=== PATIENT | female | born 1990 | race Asian ===

== ENCOUNTER → 2020-11-17 11:23 | Outpatient (CLI) | payer OTHER, SELFPAY ==
[2020-11-17 12:17] LABS: Add Manual Diff / Slide Review NO; Basophils Absolute Auto 100 /uL (0-100); Basophils Percent Auto 1.1 % (0-2); Eosinophils Absolute Auto 300 /uL (0-450); Eosinophils Percent Auto 4.5 % (2-4); Hemoglobin 14.2 g/dL (12.0-16.0); Lymphocytes Absolute Auto 2400 /uL (1100-4500); Lymphocytes Percent Auto 34.8 % (25-40); Mean Corpuscular HGB Conc 33.8 % (30-36); Mean Corpuscular Hemoglobin 27.5 PG (26-34); Mean Corpuscular Volume 81.3 fL (80-100); Monocytes Absolute Auto 400 /uL (0-900); Monocytes Percent Auto 5.8 % (3-14); Neutrophils Absolute Auto 3800 /uL (1500-7000); Neutrophils Percent Auto 53.8 % (50-75); Platelet Count 301 X10^3/uL (150-400); Red Blood Cell Count 5.17 X10^6/uL (4.0-5.2); Red Cell Distribution Width 12.6 % (11.6-14.8)
[2020-11-17 13:15] LABS: Alanine Aminotransferase 13 IU/L (<35); Albumin 4.7 g/dL (3.5-5.0); Albumin Globulin Ratio 1.4 (1.0-2.8); Alkaline Phosphatase 86 U/L (38-126); Aspartate Aminotransferase 21 IU/L (14-36); BUN Creatinine Ratio 27.1 (6-22); Bilirubin Total 0.3 mg/dL (0.2-1.3); Blood Urea Nitrogen 13 mg/dL (7-17); Calcium 9.2 mg/dL (8.4-10.2); Carbon Dioxide 25 mmol/L (22-32); Chloride 104 mmol/L (98-107); Cholesterol 224 mg/dL (140-199); Estimated Glomerular Filt Rate > 60.0 mL/min (>60); Globulin 3.4 g/dL (1.7-4.1); Glucose 107 mg/dL (70-100); HDL Cholesterol 49 mg/dL (40-60); HEMOLYSIS < 15 (0-50); LDL Cholesterol Calculated 147 mg/dL (<100); Potassium 3.4 mmol/L (3.4-5.1); Sodium 137 mmol/L (137-145); Total Protein 8.1 g/dL (6.3-8.2); Triglycerides 139 mg/dL (35-150)
== END ==
PROVIDERS: PCP Registered Nurse; Referring Provider Registered Nurse; Visit Provider Registered Nurse
DX: Z00.00 Encounter for general adult medical examination without abnormal findings (principal); N83.209 Unspecified ovarian cyst, unspecified side; N92.6 Irregular menstruation, unspecified; I10 Essential (primary) hypertension
CPT/HCPCS: 36415; 80053; 80061; 85025

== ENCOUNTER → 2021-06-12 14:48 | Outpatient (CLI) | payer OTHER, SELFPAY ==
[2021-06-12 15:28] LABS: COVID19 -Nasal RAPID Negative (Negative)
== END ==
PROVIDERS: PCP Registered Nurse; Visit Provider Nurse Practitioner Family
DX: R05 Cough (principal)
CPT/HCPCS: 87635

== ENCOUNTER → 2021-10-26 15:15 | Outpatient (CLI) | payer OTHER, SELFPAY ==
--- NOTE | 2021-10-26 15:16 | DI.US.S_ITS ---
ULTRASOUND OF LEFT BREAST: 10/26/2021 CLINICAL: Palpable left breast lump x 1 mo. No prior exams were available for comparison. Color flow ultrasound of the left breast was performed. Mckenna scale images of the real-time examination were reviewed. There is a new 1.9 cm x 1.3 cm x 1.5 cm irregular fibroadenoma with a microlobulated margin in the left breast at 12 o'clock posterior depth 5 cm from the nipple. IMPRESSION: SUSPICIOUS OF MALIGNANCY The new 1.9 cm x 1.3 cm x 1.5 cm irregular fibroadenoma in the left breast is at a low suspicion for malignancy. An ultrasound guided biopsy is recommended. These findings and recommendation were discussed with the patient by Dr. Christian. This exam was interpreted at Station ID: [id number]. Electronically Signed By: Devin Quesada acr/:10/26/2021 15:39:35 letter sent: Biopsy Required Ultrasound BI-RADS: 4a Low suspicion for malignancy
== END ==
PROVIDERS: PCP Registered Nurse; Referring Provider Registered Nurse; Visit Provider Registered Nurse
DX: D24.2 Benign neoplasm of left breast (principal); N64.4 Mastodynia
CPT/HCPCS: 76642

== ENCOUNTER → 2021-11-12 07:36 | Outpatient (CLI) | payer OTHER, SELFPAY ==
--- NOTE | 2021-11-12 | PATH_ITS ---
[facility] Accession Number: [id number] No. of containers..01 Tissue . 01 Material submitted: . breast - LEFT BREAST MASS 12:00 5CMFN . 02 Diagnosis: Left Breast Mass, 12 o'clock, 5 cm from Nipple, Needle Core Biopsy: Benign fibroadipose tissue. Please see comment. No definite breast parenchyma identified. MRV 11/14/2021 1019 Local . 02 Comment: The histologic findings could be consistent with an intraparenchymal lipoma, in the appropriate clinical and imaging setting. Please correlate these findings with imaging studies. No definite breast parenchyma identified. No fibroadenomatous features identified. . 02 Electronically signed: . Susana Rg MD, Pathologist NPI- [id number] . 01 Gross description: . Received in one formalin-filled container, labeled with the patient's name and designated left breast mass 12 o'clock 5 cm FN, are multiple yellow-guan, cylindrical-shaped portions of tissue which range in size from 0.2 x 0.1 x 0.1 cm to 0.7 x 0.1 x 0.1 cm. All fragments are totally submitted in one cassette. Possible collection date and time per requisition: 11/12/2021 at 9:01. Total fixation time: Approximately 18 hours. ([id number]) /FRR 11/13/20212 Local . 02 Pathologist provided ICD-10: N63.20 . 02 CPT . 895484 Specimen Comment: A courtesy copy of this report has been sent to [facility] Pathology Performed at: 01 [facility] [address] [place] [address] [address], [place], [place] [id number] MD Miguel Baca MD Phone: [phone] Performed at: 02 [facility] [address] [place] [id number] MD Cherelle Herrera MD Phone: [phone]
--- NOTE | 2021-11-12 07:53 | DI.US.S_ITS ---
Patient Name: SOURAV COPE date: 1990 Sex: F Attending Physician: Scarlet Handley Indications: Date: 11/12/2021 09:06 At the request of: JAVIER HADLEY Procedure: US breast ndl core biopsy LT ULTRASOUND GUIDED BIOPSY LEFT BREAST WITH MARKING DEVICE INSERTED: 11/12/2021 CLINICAL: Left breast mass. PATIENT CONSENT: Risks (minor bleeding, infection, vasovagal reaction and repeat procedure), benefits and alternatives were explained to the patient and written informed consent was obtained. Correlation is made to exam dated: 10/26/2021 [facility]. An ultrasound guided biopsy using real-time ultrasound was performed for the 5 cm circumscribed mass located in the left breast at 12 o'clock anterior depth. The skin was prepped in the usual manner. A skin will was made in the breast. The abnormality was approached from the lateral aspect. A biopsy needle was placed adjacent to the abnormality under ultrasound guidance. Once the needle was documented to be in the correct location, a specimen was obtained using a NimiaNO biopsy device. A titanium clip was inserted into the biopsy cavity. The specimen was sent to the laboratory for pathological analysis. IMPRESSION: ULTRASOUND GUIDED BIOPSY BENIGN Ultrasound guided biopsy of the 5 cm mass in the left breast at 12 o'clock anterior depth was performed with pathology indicating benign adipose tissue. Pathology results are discordant with imaging findings. Re-biopsy is recommended. This exam was interpreted at Station ID: [id number]. Dr Mendoza Mclean M.D.
== END ==
PROVIDERS: PCP Registered Nurse; Referring Provider Registered Nurse; Visit Provider Registered Nurse
DX: N63.25 Unspecified lump in the left breast, overlapping quadrants (principal)
CPT/HCPCS: 19083

== ENCOUNTER → 2021-12-27 08:57 | Outpatient (CLI) | payer OTHER, SELFPAY ==
--- NOTE | 2021-12-27 | DI.MG.S_ITS ---
UNILATERAL LEFT DIGITAL DIAGNOSTIC MAMMOGRAM 3D/2D POST-EXCISIONAL BIOPSY: 12/27/2021 CLINICAL: Post clip. Mammo baseline. Comparison is made to exams dated: 11/12/2021 ultrasound biopsy and 10/26/[address] [facility]. The tissue of left breast is extremely dense, which lowers the sensitivity of mammography. There is a marker clip in the appropriate position in the left breast at 12 o'clock anterior depth. This marker clip placement is at the biopsy site. IMPRESSION: POST PROCEDURE MAMMOGRAM FOR MARKER PLACEMENT There was a successful marker clip placement in the left breast anterior depth. This exam was interpreted at Station ID: [id number]. NOTE: For mammograms, a report in lay terms will be sent to the patient. Approximately 15% of breast malignancies will not be visualized mammographically. In the management of a palpable breast mass, a negative mammogram must not discourage biopsy of a clinically suspicious lesion. Electronically Signed By: Kimberly flores/penroger:12/27/2021 10:13:02 ACR BI-RADS Category Post-procedure mammogram for marker placement
--- NOTE | 2021-12-27 | PATH_ITS ---
[facility] Accession Number: [id number] No. of containers..01 Tissue . 01 Material submitted: . breast - LEFT BREAST MASS 12:00 . 02 Diagnosis: Left Breast Mass at 12 o'clock, Needle Core Biopsy: Fibroepithelial lesion, consistent with myxoid fibroadenoma. Negative for epithelial atypia or malignancy. MRV 12/31/2021 1137 Local . 02 Comment: As part of routine quality manager, this case was also reviewed by Dr. Colvin, who agrees with the interpretation. . 02 Electronically signed: . Susana Rg MD, Pathologist NPI- [id number] . 01 Gross description: . Received in one part. . Received in formalin, labeled Lela Monet per container and designated left breast mass 12 o'clock per requisition, are four 0.2 cm in diameter elongated portions of guan, rubbery, fibrofatty tissue ranging in length from 1.0 cm to 2.1 cm, and a 2.0 x 0.5 x 0.2 cm aggregate of friable debris. The cores are entirely submitted in cassette A1 and the debris is entirely submitted in cassette A2. (WENDY:[id number]) /FLORENTIN 12/29/2021 1647 Local . 02 Microscopic: . An immunohistochemistry study is performed to evaluate the cells of interest. The control stains show appropriate reactivity. . RESULTS: P63: Positive around cells of interest. Myosin: Positive around cells of interest. . The presence of p63 and smooth muscle myosin around the cells of interest mitigates against the presence of invasive tumor at these foci. . * This test was developed and its performance characteristics determined by [employer]. It has not been cleared or approved by the U.S. Food and Drug Administration. The FDA has determined that such clearance or approval is not necessary. This test is used for clinical purposes. It should not be regarded as investigational or for research . 02 Pathologist provided ICD-10: D24.2 . 02 CPT . 847432, D12987, O68679 Specimen Comment: A courtesy copy of this report has been sent to [facility] Pathology Performed at: 01 [facility] [address] [facility], [place], [place] [id number] MD Miguel Baca MD Phone: [phone] Performed at: 02 [facility] [address] [place], [place] [id number] MD Cherelle Herrera MD Phone: [phone]
--- NOTE | 2021-12-27 | DI.US.S_ITS ---
ULTRASOUND GUIDED BIOPSY LEFT BREAST USING VACUUM DEVICE WITH MARKING DEVICE INSERTED AND POST DIGITAL MAMMOGRAPHIC IMAGIN12/27/2021 CLINICAL: Left breast mass. Repeat biopsy. PATIENT CONSENT: Risks (minor bleeding, infection, vasovagal reaction and repeat procedure), benefits and alternatives were explained to the patient and written informed consent was obtained. Correlation is made to exams dated: 12/27/2021 mammogram, 11/12/2021 ultrasound biopsy, and 10/26/2021 [facility]. An ultrasound guided biopsy using real-time ultrasound was performed for the irregular shaped mass located in the left breast at 11 o'clock anterior depth. The skin was prepped in the usual manner. Local anesthetic was administered to the access site. A skin will was made in the breast. The abnormality was approached from the lateral aspect. A 13 gauge biopsy needle was placed adjacent to the abnormality under ultrasound guidance. Once the needle was documented to be in the correct location, four specimens were obtained using the Mammotome biopsy system. A Celero biopsy clip was inserted into the biopsy cavity. A skin closure strip was applied to the access site. Post procedure digital mammographic imaging demonstrates the location device at the targeted area. The specimens were sent to the laboratory for pathological analysis. IMPRESSION: ULTRASOUND GUIDED BIOPSY BENIGN Ultrasound guided biopsy of the mass in the left breast at 11 o'clock anterior depth was successful. Pathology indicates benign fibroadenoma (FA). Pathology results are concordant with imaging findings. Recommend annual mammography beginning at age 40. This exam was interpreted at Station ID: [id number]. Kimberly Quesada [facility],acr/:01/02/2022 09:32:44
== END ==
PROVIDERS: PCP Registered Nurse; Referring Provider Registered Nurse; Visit Provider Registered Nurse
DX: D24.2 Benign neoplasm of left breast (principal)
CPT/HCPCS: 19083; 77065

== ENCOUNTER → 2022-06-28 11:06 | Outpatient (CLI) | payer OTHER, SELFPAY ==
[2022-06-28 11:45] LABS: Hematocrit 42.1 % (36-46); Hemoglobin 14.1 g/dL (12.0-16.0); Mean Corpuscular HGB Conc 33.5 % (30-36); Mean Corpuscular Hemoglobin 27.3 PG (26-34); Mean Corpuscular Volume 81.5 fL (80-100); Platelet Count 355 X10^3/uL (150-400); Red Blood Cell Count 5.16 X10^6/uL (4.0-5.2); Red Cell Distribution Width 12.6 % (11.6-14.8); White Blood Cell Count 6.1 X10^3/uL (4.5-11.0)
[2022-06-28 12:08] LABS: Creatinine Urine Random 92.6 mg/dL
[2022-06-28 12:09] LABS: Alanine Aminotransferase 15 IU/L (<35); Albumin 4.7 g/dL (3.5-5.0); Albumin Globulin Ratio 1.4 (1.0-2.8); Alkaline Phosphatase 81 U/L (38-126); Aspartate Aminotransferase 22 IU/L (14-36); BUN Creatinine Ratio 16.4 (6-22); Bilirubin Total 0.4 mg/dL (0.2-1.3); Blood Urea Nitrogen 10 mg/dL (7-17); Calcium 9.2 mg/dL (8.4-10.2); Carbon Dioxide 28 mmol/L (22-32); Chloride 102 mmol/L (98-107); Cholesterol 189 mg/dL (140-199); Estimated Glomerular Filt Rate > 60 mL/min (>60); Globulin 3.3 g/dL (1.7-4.1); Glucose 93 mg/dL (70-100); HDL Cholesterol 37 mg/dL (40-60); HEMOLYSIS < 15 (0-50); LDL Cholesterol Calculated 132 mg/dL (<100); Potassium 4.4 mmol/L (3.4-5.1); Sodium 140 mmol/L (137-145); Triglycerides 99 mg/dL (35-150)
[2022-06-28 12:10] LABS: Microalbumi Creatinin Ratio Ur 38.8 ug/mg CR (<30); Microalbumin Urine Random 3.6 mg/dL (0-1.6)
[2022-06-28 12:39] LABS: TSH w/ Reflex to FT4 1.03 uIU/mL (0.47-4.68)
== END ==
PROVIDERS: Family Medicine; PCP Registered Nurse Diabetes Educator; Referring Provider Registered Nurse Diabetes Educator; Visit Provider Registered Nurse Diabetes Educator
DX: I10 Essential (primary) hypertension (principal); E78.5 Hyperlipidemia, unspecified; R00.2 Palpitations; R73.01 Impaired fasting glucose
CPT/HCPCS: 36415; 80053; 80061; 82043; 82570; 83036; 84443; 85027

== ENCOUNTER 2022-07-18 10:32 | Emergency (ER) | payer OTHER, SELFPAY ==
[2022-07-18 10:38] VITALS: BP 184/116; PULSE 75; RESP 15; TEMP 35.8; O2SAT 100; BMI 29.2
--- NOTE | 2022-07-18 10:43 | DI.RAD.S_ITS ---
PROCEDURE: XR CHEST 1V INDICATIONS: chest pain TECHNIQUE: One view of the chest was acquired. COMPARISON: None. FINDINGS: Surgical changes and devices: Left breast clips. Lungs and pleura: Lungs are clear. No pleural effusions or pneumothorax. Mediastinum: Mediastinal contours appear normal. Heart size is normal. Bones and chest wall: No suspicious bony lesions. Overlying soft tissues appear unremarkable. IMPRESSION: No acute cardiopulmonary abnormality. Dictated by: Giuseppe Eduardo M.D. on 07/18/2022 at 11:27 Approved by: Giuseppe Eduardo M.D. on 07/18/2022 at 11:28
[2022-07-18 11:16] LABS: Add Manual Diff / Slide Review NO; Basophils Absolute Auto 100 /uL (0-100); Basophils Percent Auto 1.1 % (0-2); Eosinophils Absolute Auto 300 /uL (0-450); Eosinophils Percent Auto 3.6 % (2-4); Hematocrit 41.7 % (36-46); Hemoglobin 13.7 g/dL (12.0-16.0); Lymphocytes Absolute Auto 2400 /uL (1100-4500); Lymphocytes Percent Auto 29.3 % (25-40); Mean Corpuscular HGB Conc 32.9 % (30-36); Mean Corpuscular Hemoglobin 27.2 PG (26-34); Mean Corpuscular Volume 82.8 fL (80-100); Monocytes Absolute Auto 600 /uL (0-900); Monocytes Percent Auto 7.3 % (3-14); Neutrophils Absolute Auto 4900 /uL (1500-7000); Neutrophils Percent Auto 58.7 % (50-75); Platelet Count 323 X10^3/uL (150-400); Red Blood Cell Count 5.04 X10^6/uL (4.0-5.2); White Blood Cell Count 8.3 X10^3/uL (4.5-11.0)
[2022-07-18 11:22] LABS: Prothrombin Time 11.3 SECONDS (10.1-12.7)
[2022-07-18 11:24] LABS: PTT Partial Thromboplastin Tim 32 SECONDS (26-36)
[2022-07-18 11:28] LABS: Alanine Aminotransferase 14 IU/L (<35); Albumin 4.7 g/dL (3.5-5.0); Albumin Globulin Ratio 1.4 (1.0-2.8); Alkaline Phosphatase 89 U/L (38-126); Aspartate Aminotransferase 18 IU/L (14-36); BUN Creatinine Ratio 24.5 (6-22); Bilirubin Total 0.6 mg/dL (0.2-1.3); Blood Urea Nitrogen 13 mg/dL (7-17); Carbon Dioxide 23 mmol/L (22-32); Chloride 104 mmol/L (98-107); Creatine Kinase 49 U/L (30-135); Estimated Glomerular Filt Rate > 60 mL/min (>60); Globulin 3.4 g/dL (1.7-4.1); Glucose 105 mg/dL (70-100); HEMOLYSIS < 15 (0-50); Lipase 90 U/L (23-300); Potassium 3.9 mmol/L (3.4-5.1); Sodium 139 mmol/L (137-145); Total Protein 8.1 g/dL (6.3-8.2)
[2022-07-18 11:39] LABS: Troponin I < 0.012 ng/mL (0.01-0.034)
[2022-07-18 15:33] VITALS: PULSE 84; RESP 20; O2SAT 100
[2022-07-18 15:35] VITALS: BP 156/95; PULSE 80; RESP 18; O2SAT 99
--- NOTE | 2022-07-18 15:42 | ED_ITS ---
HPI - Chest Pain <Wolfgang Goldstein PA-C - Last Filed: 07/18/22 16:13> General Chief Complaint: Chest Pain Stated Complaint: chest pressure, headace yesterday Time Seen by Provider: 07/18/22 15:25 Source: patient Mode of arrival: Ambulatory Limitations: no limitations History of Present Illness HPI narrative: This is a 31-year-old female presents 3 department due to a week of chest pressure and ?tightness?. Denies any significant shortness of breath or sharp chest pain. Patient denies any fevers, nausea, vomiting, your eye symptoms, or any other concerning signs or symptoms. Patient states that the pain is constant and does not worsen with activity or changes in position. Patient states that she is been seen by her primary care provider for this without any official diagnosis. Last took her control pill a month ago. Related Data Previous Rx's Medication Instructions Recorded norethindrone acetate 1 mg-ethinyl See Rx Instructions .Route 03/01/22 estradiol 20 mcg tablet .COMPLEX #63 tabs metoprolol succinate 100 mg 100 mg PO DAILY #90 tabs 07/17/22 tablet,extended release 24 hr albuterol sulfate 90 mcg/actuation 1 inh inhalation Q4-6H PRN 07/18/22 breath activated powder inhaler shortness of breath #1 ea Allergies Allergy/AdvReac Type Severity Reaction Status Date / Time No Known Drug Allergies Allergy Unverified 07/18/22 10:45 Review of Systems <Wolfgang Goldstein PA-C - Last Filed: 07/18/22 16:13> Review of Systems Narrative: GENERAL: Denies chills, fatigue, malaise, fever, sweats. HEENT: Denies sinus pain, ear pain, sore throat, difficulty swallowing, dizziness. RESPIRATORY: Denies dyspnea, cough, wheezing, hemoptysis, sputum. CARDIOVASCULAR: Reports chest tightness as well as chest pressure, denies, palpitations, orthopnea, edema, GASTROINTESTINAL: Denies nausea, vomiting, abdominal pain, diarrhea, constipation, melena. : Denies dysuria, frequency, incontinence, hematuria, urinary retention. MUSCULOSKELETAL: denies weakness, joint pain, or bony pain SKIN: Denies rash, skin lesions, or other NEUROLOGIC: Denies weakness, headache, numbness, change in speech, confusion, seizures, incoordination. PSYCHIATRIC: No concerning psychosocial issues. 12 point review of systems is negative except for those stated above Patient History <Wolfgang Goldstein PA-C - Last Filed: 07/18/22 16:13> Medical History Anxiety Chicken pox (~1995) Dyslipidemia Essential hypertension (~2018) Immunization due Impaired fasting blood sugar Mass of breast, left Painful lumpy left breast Surgical History History of section (~07/02/19) [place] teeth removed (~2013) Social History (System 07/18/22 @ 10:45 by Deyanira Venegas) Smoking Status: Unknown if ever smoked Smoking Status: Unknown if ever smoked alcohol intake frequency: holidays/special occasions only Substance Use Type: does not use Exam <Wolfgang Goldstein PA-C - Last Filed: 07/18/22 16:13> Narrative Exam Narrative: GENERAL: Well-developed patient, in mild distress. HEAD: Atraumatic. Normocephalic. EYES: Pupils equal round and reactive. Extraocular motions intact. No scleral icterus. No injection or drainage. ENT: Nose without bleeding, purulent drainage. Throat without erythema, tonsillar hypertrophy or exudate. Airway patent. NECK: Trachea midline. Non tender CARDIOVASCULAR: Regular rate and rhythm without murmurs, gallops, or rubs. RESPIRATORY: Clear to auscultation. Breath sounds equal bilaterally. No wheezes, rales, or rhonchi. GASTROINTESTINAL: Abdomen soft, non-tender, nondistended. EXTREMITIES: No edema or joint tenderness. BACK: Nontender without deformity or crepitance. No flank tenderness. NEURO: AOx3. SKIN: No rash or erythema of visible areas Initial Vital Signs Initial Vital Signs: Vital Signs Temperature 96.4 F L 07/18/22 10:38 Pulse Rate 75 07/18/22 10:38 Respiratory Rate 15 07/18/22 10:38 Blood Pressure 184/116 H 07/18/22 10:38 Pulse Oximetry 100 07/18/22 10:38 Oxygen Delivery Method 07/18/22 10:38 <Payton Sales DO - Last Filed: 07/19/22 09:26> Initial Vital Signs Initial Vital Signs: Vital Signs Temperature 96.4 F L 07/18/22 10:38 Pulse Rate 75 07/18/22 10:38 Respiratory Rate 15 07/18/22 10:38 Blood Pressure 184/116 H 07/18/22 10:38 Pulse Oximetry 100 07/18/22 10:38 Oxygen Delivery Method 07/18/22 10:38 Course <Wolfgang Goldstein PA-C - Last Filed: 07/18/22 16:13> Orders Ordered: ED Orders 07/18/22 10:30 Comprehensive Metabolic Panel Stat Lipase Stat Magnesium Stat Partial Thromboplastin Time Stat Prothrombin Time INR Stat Troponin & CK Cardiac Panel Stat 07/18/22 10:43 XR chest 1V Stat EKG-12 Lead Stat 07/18/22 10:50 Complete Blood Count AUTO DIFF Stat 07/18/22 15:50 D Dimer Stat Vital Signs Vital signs: Vital Signs - 8 hr 07/18/22 10:38 Temperature 96.4 F L Pulse Rate 75 Respiratory Rate 15 Blood Pressure 184/116 H Pulse Oximetry 100 Oxygen Delivery Method Room Air <Payton Sales DO - Last Filed: 07/19/22 09:26> Orders Ordered: ED Orders 07/18/22 10:30 Comprehensive Metabolic Panel Stat Lipase Stat Magnesium Stat Partial Thromboplastin Time Stat Prothrombin Time INR Stat Troponin & CK Cardiac Panel Stat 07/18/22 10:43 XR chest 1V Stat EKG-12 Lead Stat 07/18/22 10:50 Complete Blood Count AUTO DIFF Stat 07/18/22 15:50 D Dimer Stat Vital Signs Vital signs: Vital Signs - 8 hr 07/18/22 10:38 Temperature 96.4 F L Pulse Rate 75 Respiratory Rate 15 Blood Pressure 184/116 H Pulse Oximetry 100 Oxygen Delivery Method Room Air MDM - Chest Pain <Wolfgang Goldstein PA-C - Last Filed: 07/18/22 16:13> Lab Data Result diagrams: 07/18/22 10:50 07/18/22 10:30 Labs: Lab Results 07/18/22 07/18/22 07/18/22 Range/Units 10:30 10:30 10:50 WBC 8.3 (4.5-11.0) X10^3/uL RBC 5.04 (4.0-5.2) X10^6/uL Hgb 13.7 (12.0-16.0) g/dL Hct 41.7 (36-46) % MCV 82.8 (80-100) fL MCH 27.2 (26-34) PG MCHC 32.9 (30-36) % RDW 13.0 (11.6-14.8) % Plt Count 323 (150-400) X10^3/uL Neut % (Auto) 58.7 (50-75) % Lymph % (Auto) 29.3 (25-40) % [place] % (Auto) 7.3 (3-14) % Eos % (Auto) 3.6 (2-4) % Baso % (Auto) 1.1 (0-2) % Neut # (Auto) 4900 (0934-4990) /uL Lymph # (Auto) 2400 (6672-5499) /uL [place] # (Auto) 600 (0-900) /uL Eos # (Auto) 300 (0-450) /uL Baso # (Auto) 100 (0-100) /uL PT 11.3 (10.1-12.7) SECONDS INR 1.0 (0.9-1.3) APTT 32 (26-36) SECONDS D-Dimer (<500) ng/ml Sodium 139 (137-145) mmol/L Potassium 3.9 (3.4-5.1) mmol/L Chloride 104 (98-107) mmol/L Carbon Dioxide 23 (22-32) mmol/L BUN 13 (7-17) mg/dL Creatinine 0.53 (0.52-1.04) mg/dL Estimated GFR > 60 (>60) mL/min BUN/Creatinine Ratio 24.5 H (6-22) Glucose 105 H (70-100) mg/dL Calcium 9.0 (8.4-10.2) mg/dL Magnesium 2.0 (1.6-2.3) mg/dL Total Bilirubin 0.6 (0.2-1.3) mg/dL AST 18 (14-36) IU/L ALT 14 (<35) IU/L Alkaline Phosphatase 89 (38-126) U/L Total Creatine Kinase 49 (30-135) U/L CK-MB (CK-2) TNP CK-MB (CK-2) Rel Index TNP Troponin I < 0.012 (0.01-0.034) ng/mL Total Protein 8.1 (6.3-8.2) g/dL Albumin 4.7 (3.5-5.0) g/dL Globulin 3.4 (1.7-4.1) g/dL Albumin/Globulin Ratio 1.4 (1.0-2.8) Lipase 90 (23-300) U/L 07/18/22 Range/Units 15:50 WBC (4.5-11.0) X10^3/uL RBC (4.0-5.2) X10^6/uL Hgb (12.0-16.0) g/dL Hct (36-46) % MCV (80-100) fL MCH (26-34) PG MCHC (30-36) % RDW (11.6-14.8) % Plt Count (150-400) X10^3/uL Neut % (Auto) (50-75) % Lymph % (Auto) (25-40) % [place] % (Auto) (3-14) % Eos % (Auto) (2-4) % Baso % (Auto) (0-2) % Neut # (Auto) (3957-8896) /uL Lymph # (Auto) (8295-3691) /uL [place] # (Auto) (0-900) /uL Eos # (Auto) (0-450) /uL Baso # (Auto) (0-100) /uL PT (10.1-12.7) SECONDS INR (0.9-1.3) APTT (26-36) SECONDS D-Dimer 305 (<500) ng/ml Sodium (137-145) mmol/L Potassium (3.4-5.1) mmol/L Chloride (98-107) mmol/L Carbon Dioxide (22-32) mmol/L BUN (7-17) mg/dL Creatinine (0.52-1.04) mg/dL Estimated GFR (>60) mL/min BUN/Creatinine Ratio (6-22) Glucose (70-100) mg/dL Calcium (8.4-10.2) mg/dL Magnesium (1.6-2.3) mg/dL Total Bilirubin (0.2-1.3) mg/dL AST (14-36) IU/L ALT (<35) IU/L Alkaline Phosphatase (38-126) U/L Total Creatine Kinase (30-135) U/L CK-MB (CK-2) CK-MB (CK-2) Rel Index Troponin I (0.01-0.034) ng/mL Total Protein (6.3-8.2) g/dL Albumin (3.5-5.0) g/dL Globulin (1.7-4.1) g/dL Albumin/Globulin Ratio (1.0-2.8) Lipase (23-300) U/L Imaging Data Chest x-ray: Radiologist's Impression: [address] [address] XRay Report Signed Patient: Lela Monet MR#: [id number] : 1990 Acct:[id number] Age/Sex: 31 / F Date of Service: 07/18/22 Loc: ED Accession Number: [id number] ?? Procedure: XR chest 1V Ordering Provider: Payton Sales D.O. PROCEDURE:? XR CHEST 1V ? INDICATIONS:? chest pain ? TECHNIQUE:? One view of the chest was acquired.? ? COMPARISON:? None. ? FINDINGS:? ? Surgical changes and devices:? Left breast clips. ? Lungs and pleura:? Lungs are clear.? No pleural effusions or pneumothorax.? ? Mediastinum:? Mediastinal contours appear normal.? Heart size is normal.? ? Bones and chest wall:? No suspicious bony lesions.? Overlying soft tissues appear unremarkable.? ? IMPRESSION:? No acute cardiopulmonary abnormality. ? ? ? Dictated by: Giuseppe Eduardo M.D. on 07/18/2022 at 11:27 ? ? Approved by: Giuseppe Eduardo M.D. on 07/18/2022 at 11:28 ? ECG Data Interpretation: EKG is normal sinus rhythm rate 89 and free of any signs of ischemia or ectopy. No ST segmental elevation or depression. No T wave inversions MDM Narrative Medical decision making narrative: Is an otherwise healthy 31-year-old female presents to the emergency department due to a week of chest pressure mild chest ?tightness?. All cardiac workup negative. Troponin within normal limits, EKG reassuring, chest x-ray showed no abnormalities, all other lab work negative as well. Background patient follow- up with her primary care provider for continued workup with possible Cardiology referral. Albuterol inhaler also prescribed in the event that this is some kind of mild reaction to the increased smoke in the area. D-dimer also negative to rule out PE. <Payton Sales, - Last Filed: 07/19/22 09:26> Lab Data Labs: Lab Results 07/18/22 07/18/22 07/18/22 Range/Units 10:30 10:30 10:50 WBC 8.3 (4.5-11.0) X10^3/uL RBC 5.04 (4.0-5.2) X10^6/uL Hgb 13.7 (12.0-16.0) g/dL Hct 41.7 (36-46) % MCV 82.8 (80-100) fL MCH 27.2 (26-34) PG MCHC 32.9 (30-36) % RDW 13.0 (11.6-14.8) % Plt Count 323 (150-400) X10^3/uL Neut % (Auto) 58.7 (50-75) % Lymph % (Auto) 29.3 (25-40) % [place] % (Auto) 7.3 (3-14) % Eos % (Auto) 3.6 (2-4) % Baso % (Auto) 1.1 (0-2) % Neut # (Auto) 4900 (7340-6293) /uL Lymph # (Auto) 2400 (1072-7203) /uL [place] # (Auto) 600 (0-900) /uL Eos # (Auto) 300 (0-450) /uL Baso # (Auto) 100 (0-100) /uL PT 11.3 (10.1-12.7) SECONDS INR 1.0 (0.9-1.3) APTT 32 (26-36) SECONDS D-Dimer (<500) ng/ml Sodium 139 (137-145) mmol/L Potassium 3.9 (3.4-5.1) mmol/L Chloride 104 (98-107) mmol/L Carbon Dioxide 23 (22-32) mmol/L BUN 13 (7-17) mg/dL Creatinine 0.53 (0.52-1.04) mg/dL Estimated GFR > 60 (>60) mL/min BUN/Creatinine Ratio 24.5 H (6-22) Glucose 105 H (70-100) mg/dL Calcium 9.0 (8.4-10.2) mg/dL Magnesium 2.0 (1.6-2.3) mg/dL Total Bilirubin 0.6 (0.2-1.3) mg/dL AST 18 (14-36) IU/L ALT 14 (<35) IU/L Alkaline Phosphatase 89 (38-126) U/L Total Creatine Kinase 49 (30-135) U/L CK-MB (CK-2) TNP CK-MB (CK-2) Rel Index TNP Troponin I < 0.012 (0.01-0.034) ng/mL Total Protein 8.1 (6.3-8.2) g/dL Albumin 4.7 (3.5-5.0) g/dL Globulin 3.4 (1.7-4.1) g/dL Albumin/Globulin Ratio 1.4 (1.0-2.8) Lipase 90 (23-300) U/L 10// Range/Units 15:50 WBC (4.5-11.0) X10^3/uL RBC (4.0-5.2) X10^6/uL Hgb (12.0-16.0) g/dL Hct (36-46) % MCV (80-100) fL MCH (26-34) PG MCHC (30-36) % RDW (11.6-14.8) % Plt Count (150-400) X10^3/uL Neut % (Auto) (50-75) % Lymph % (Auto) (25-40) % [place] % (Auto) (3-14) % Eos % (Auto) (2-4) % Baso % (Auto) (0-2) % Neut # (Auto) (1524-1343) /uL Lymph # (Auto) (0507-2262) /uL [place] # (Auto) (0-900) /uL Eos # (Auto) (0-450) /uL Baso # (Auto) (0-100) /uL PT (10.1-12.7) SECONDS INR (0.9-1.3) APTT (26-36) SECONDS D-Dimer 305 (<500) ng/ml Sodium (137-145) mmol/L Potassium (3.4-5.1) mmol/L Chloride (98-107) mmol/L Carbon Dioxide (22-32) mmol/L BUN (7-17) mg/dL Creatinine (0.52-1.04) mg/dL Estimated GFR (>60) mL/min BUN/Creatinine Ratio (6-22) Glucose (70-100) mg/dL Calcium (8.4-10.2) mg/dL Magnesium (1.6-2.3) mg/dL Total Bilirubin (0.2-1.3) mg/dL AST (14-36) IU/L ALT (<35) IU/L Alkaline Phosphatase (38-126) U/L Total Creatine Kinase (30-135) U/L CK-MB (CK-2) CK-MB (CK-2) Rel Index Troponin I (0.01-0.034) ng/mL Total Protein (6.3-8.2) g/dL Albumin (3.5-5.0) g/dL Globulin (1.7-4.1) g/dL Albumin/Globulin Ratio (1.0-2.8) Lipase (23-300) U/L ECG Data Interpretation: EKG is normal sinus rhythm rate 89 and free of any signs of ischemia or ectopy. No ST segmental elevation or depression. No T wave inversions [place]-sinus rhythm rate 81-year-old 1 2 QRS [address] changes no T-wave inversions no priors to compare Discharge Plan Departure Patient Disposition: Home Clinical Impression: Chest pressure Instructions: DI for Atypical Chest Pain Activity Restrictions/Additional Instructions: Thank you for coming to the [facility] Emergency Department today. Your cardiac workup was unremarkable. Chest x-ray showed no evidence of heart or lung abnormalities. The blood test to check for any kind of heart attack was reassuring. EKG showed no evidence of any kind heart abnormality. All your other lab work was unremarkable as well, did not show any signs of infection or electrolyte abnormalities. We also did a test to check for any kind of blood clot in your lungs which was also negative. I recommended follow-up with the primary care provider for possible cardiology referral if symptoms continue. I hope you feel better soon. Prescriptions: New albuterol sulfate 90 mcg/actuation aerosol powdr breath activated 1 inh inhalation Q4-6H PRN (Reason: shortness of breath) Qty: 1 0RF No Action norethindrone ac-eth estradiol 1-20 mg-mcg tablet See Rx Instructions .ROUTE .COMPLEX Qty: 63 1RF Dose Instruction: TAKE 1 TABLET BY MOUTH DAILY Rx Instructions: TAKE 1 TABLET BY MOUTH DAILY metoprolol succinate 100 mg tablet extended release 24 hr 100 mg PO DAILY Qty: 90 0RF Referrals: Greg Sethi ARNP [Primary Care Provider] - Visit Report Forms: Patient Portal/API <Payton Sales DO - Last Filed: 07/19/22 09:26> Cosign ED Attending Antolinature Attestation: I was immediately available in the department for consultation. Documentation has been reviewed. I agree with assessment and plan.
[2022-07-18 16:00] VITALS: BP 149/90; PULSE 80; RESP 18; O2SAT 97
[2022-07-18 16:10] LABS: D Dimer 305 ng/ml (<500)
== END 2022-07-18 16:20 | disposition home or self-care (01) ==
PROVIDERS: Emergency Medicine; Emergency Provider Physician Assistant Medical; PCP Registered Nurse Diabetes Educator
DX: R07.9 Chest pain, unspecified (principal)
CPT/HCPCS: 36415; 71045; 80053; 82550; 83690; 83735; 84484; 85025; 85379; 85610; 85730; 93005; 93010; 99284

== ENCOUNTER 2022-09-08 03:23 | Emergency (ER) | payer OTHER, SELFPAY ==
[2022-09-08] VITALS (7 sets, daily range): BP systolic 135–185; BP diastolic 85–114; PULSE 91–109; RESP 16; TEMP 36.8; O2SAT 99–100; BMI 29.2
--- NOTE | 2022-09-08 03:28 | ED_ITS ---
HPI - Arrhythmia/Palpitations General Chief Complaint: Arrhythmia/Palpitations Stated Complaint: CHEST PALPITATIONS/MEDS. CHANGED Time Seen by Provider: 09/08/22 03:27 History of Present Illness HPI narrative: 31-year-old female nonsmoker with history of hypertension is a that just found out she was a few days ago. She had historically been on lisinopril and metoprolol to control her blood pressure but upon finding out she was she was taken off of these and started on labetalol 100 twice daily. She presents this morning with a chief complaint of palpitations. She states that she might be slightly dizzy but is not lightheaded. She denies headache or blurred vision. She denies chest pain or shortness of breath. She has no nausea, vomiting or diarrhea. She denies dysuria, frequency or urgency. She has no vaginal bleeding, discharge or leakage of fluid. Related Data Previous Rx's Medication Instructions Recorded metoprolol succinate 100 mg 100 mg PO DAILY #90 tabs 07/17/22 tablet,extended release 24 hr albuterol sulfate 90 mcg/actuation 1 inh inhalation Q4-6H PRN 07/18/22 breath activated powder inhaler shortness of breath #1 ea lisinopril 10 1 tab PO DAILY #30 tabs 08/20/22 mg-hydrochlorothiazide 12.5 mg tablet labetalol 100 mg tablet See Rx Instructions .Route 09/05/22 .COMPLEX #180 tabs Allergies Allergy/AdvReac Type Severity Reaction Status Date / Time No Known Drug Allergies Allergy Verified 08/20/22 13:30 Review of Systems Review of Systems Narrative: GENERAL: Denies chills, fatigue, malaise, fever, sweats. HEENT: Denies sinus pain, ear pain, sore throat, difficulty swallowing, dizziness. RESPIRATORY: Denies dyspnea, cough, wheezing, hemoptysis, sputum. CARDIOVASCULAR: See HPI GASTROINTESTINAL: Denies nausea, vomiting, abdominal pain, diarrhea, constipation, melena. : Denies dysuria, frequency, incontinence, hematuria, urinary retention. MUSCULOSKELETAL: denies weakness, joint pain, or bony pain SKIN: Denies rash, skin lesions, or other NEUROLOGIC: Denies weakness, headache, numbness, change in speech, confusion, seizures, incoordination. PSYCHIATRIC: No concerning psychosocial issues. 12 point review of systems is negative except for those stated above Patient History Medical History Anxiety Chicken pox (~1995) Dyslipidemia Essential hypertension (~2018) Immunization due Impaired fasting blood sugar Mass of breast, left Painful lumpy left breast Surgical History History of section (~07/02/19) [place] teeth removed (~2013) Social History Smoking Status: Unknown if ever smoked Smoking Status: Unknown if ever smoked alcohol intake frequency: holidays/special occasions only Substance Use Type: does not use Exam Narrative Exam Narrative: GENERAL: [31] year old patient appears stated age. Well-developed patient, in mild distress. HEAD: Atraumatic. Normocephalic. EYES: Pupils equal round and reactive. Extraocular motions intact. No scleral icterus. No injection or drainage. ENT: Nose without bleeding, purulent drainage. Throat without erythema, tonsillar hypertrophy or exudate. Airway patent. NECK: Trachea midline. Non tender CARDIOVASCULAR: Tachycardic but regular rhythm without murmurs, gallops, or rubs. RESPIRATORY: Clear to auscultation. Breath sounds equal bilaterally. No wheezes, rales, or rhonchi. GASTROINTESTINAL: Abdomen soft, non-tender, nondistended. EXTREMITIES: No edema or joint tenderness. BACK: Nontender without deformity or crepitance. No flank tenderness. NEURO: AOx3. SKIN: No rash or erythema of visible areas Initial Vital Signs Initial Vital Signs: Vital Signs Temperature 98.2 F 09/08/22 03:37 Pulse Rate 109 H 09/08/22 03:37 Respiratory Rate 16 09/08/22 03:37 Blood Pressure 183/114 H 09/08/22 03:37 Pulse Oximetry 99 09/08/22 03:37 Oxygen Delivery Method 09/08/22 03:37 Course Orders Ordered: ED Orders 09/08/22 EKG-12 Lead Routine 09/08/22 03:35 ABO RH Type Stat Complete Blood Count AUTO DIFF Stat Comprehensive Metabolic Panel Stat HCG Quantitative /Beta subunit Stat LDH [Lactate Dehydrogenase] Stat Magnesium Stat NT-proBNP (BNP-Adult 18+) Stat Troponin & CK Cardiac Panel Stat Uric Acid Stat Discontinued Medications Labetalol HCl (Labetalol 20 Mg/4 Ml Syringe) 20 mg IV NOW ONE Stop: 09/08/22 04:08 Last Admin: 09/08/22 04:12 Dose: 20 mg Documented By: LINA Labetalol HCl (Labetalol 100 Mg Tablet) 100 mg PO NOW ONE Stop: 09/08/22 04:49 Last Admin: 09/08/22 04:56 Dose: 100 mg Documented By: LINA Reevaluation(s) Reevaluation #1: Patient given Labetalol 20mg IVP and BP improves to the 140s. HR improved. Time: 04:35 Consultations Consultation #1: Discussed case with on-call OB, Dr. Camarena, we have discussed patient's history and physical, labs and response to therapies. We sure the opinion that most appropriate course is increasing labetalol from 100-200 mg p.o. b.i.d. with close follow-up Vital Signs Vital signs: Vital Signs - 8 hr 09/08/22 03:37 09/08/22 04:26 09/08/22 04:12 Temperature 98.2 F Pulse Rate 109 H 99 H 109 H Respiratory Rate 16 16 Blood Pressure 183/114 H 140/88 185/110 H Pulse Oximetry 99 99 Oxygen Delivery Method Room Air Room Air 09/08/22 04:56 09/08/22 05:23 09/08/22 05:28 Temperature Pulse Rate 101 H 98 H 97 H Respiratory Rate 16 Blood Pressure 145/88 H 135/86 135/85 Pulse Oximetry 100 Oxygen Delivery Method 09/08/22 05:44 Temperature Pulse Rate 91 H Respiratory Rate 16 Blood Pressure 142/85 H Pulse Oximetry 100 Oxygen Delivery Method Room Air MDM - Arrhythmia/Palpitations Lab Data Result diagrams: 09/08/22 03:35 09/08/22 03:35 Labs: Lab Results 09/08/22 09/08/22 09/08/22 Range/Units 03:35 03:35 03:35 WBC 10.1 (4.5-11.0) X10^3/uL RBC 4.67 (4.0-5.2) X10^6/uL Hgb 12.9 (12.0-16.0) g/dL Hct 38.4 (36-46) % MCV 82.3 (80-100) fL MCH 27.5 (26-34) PG MCHC 33.5 (30-36) % RDW 13.4 (11.6-14.8) % Plt Count 312 (150-400) X10^3/uL Neut % (Auto) 57.7 (50-75) % Lymph % (Auto) 29.7 (25-40) % [place] % (Auto) 8.5 (3-14) % Eos % (Auto) 3.3 (2-4) % Baso % (Auto) 0.8 (0-2) % Neut # (Auto) 5800 (2750-7226) /uL Lymph # (Auto) 3000 (0344-1005) /uL [place] # (Auto) 900 (0-900) /uL Eos # (Auto) 300 (0-450) /uL Baso # (Auto) 100 (0-100) /uL Sodium 137 (137-145) mmol/L Potassium 3.8 (3.4-5.1) mmol/L Chloride 107 (98-107) mmol/L Carbon Dioxide 21 L (22-32) mmol/L BUN 11 (7-17) mg/dL Creatinine 0.48 L (0.52-1.04) mg/dL Estimated GFR > 60 (>60) mL/min BUN/Creatinine Ratio 22.9 H (6-22) Glucose 103 H (70-100) mg/dL Uric Acid 6.1 (2.5-6.2) mg/dL Calcium 8.9 (8.4-10.2) mg/dL Magnesium 1.8 (1.6-2.3) mg/dL Total Bilirubin 0.4 (0.2-1.3) mg/dL AST 20 (14-36) IU/L ALT 14 (<35) IU/L Alkaline Phosphatase 77 (38-126) U/L Lactate Dehydrogenase 148 (120-246) U/L Total Creatine Kinase 62 (30-135) U/L CK-MB (CK-2) TNP CK-MB (CK-2) Rel Index TNP Troponin I < 0.012 (0.01-0.034) ng/mL NT-Pro-B Natriuret Pep 42 (<125) pg/mL Total Protein 7.6 (6.3-8.2) g/dL Albumin 4.4 (3.5-5.0) g/dL Globulin 3.2 (1.7-4.1) g/dL Albumin/Globulin Ratio 1.4 (1.0-2.8) HCG, Quant 486.8 mIU/mL Blood Type B Positive ECG Data Interpretation: [0334] EKG is normal sinus rhythm rate [112 ] and free of any signs of ischemia or ectopy. No ST segmental elevation or depression. No T wave inversions MDM Narrative Medical decision making narrative: 31-year-old female nonsmoker with history of asthma and hypertension presents with chief complaint of increased blood pressure and heart rate after switching from metoprolol and lisinopril when she found out she was . Other than palpitations she is asymptomatic and denies headache or blurred vision or chest pain or shortness of breath. Patient responds quite well to labetalol IV and blood pressures improved to the 130s 140s with heart rate dropping to the 80s and 90s. Labs are very reassuring. I have consulted with on-call Ob who recomm ends increasing labetalol to 200 mg p.o. b.i.d.. Extensive return precautions discussed and questions answered to her apparent satisfaction Discharge Plan Departure Patient Disposition: Home Clinical Impression: HTN in , chronic Instructions: High Blood Pressure Activity Restrictions/Additional Instructions: *You have been diagnosed with [high blood pressure early in .] *What to do: *Please increase your Labetalol to 200mg twice daily [ ] New medication prescriptions sent to your pharmacy: [ ] [ ] New medication written as a paper prescription [ ] No new medications given *Please follow up with your primary care provider in 2-3 days, call for an appointment. Let them know you were seen in the Emergency Department and that we ask that you be seen in follow up. We will electronically transmit a record of today's note if your PCP is in our system * as we discussed I have contacted our on-call Customer Project Manager. Please call their office on Friday, let them know you were seen in the emergency department and we would like you seen in follow-up *Return to Emergency Department if you should have any new, worsening or concerning symptoms, such as [fever greater than 101 F, shaking chills, worsening pain, persistent vomiting or other bothersome symptoms] Prescriptions: No Action labetalol 100 mg tablet See Rx Instructions .ROUTE .COMPLEX Qty: 180 0RF Dose Instruction: TAKE 1 TABLET BY MOUTH TWICE DAILY Rx Instructions: TAKE 1 TABLET BY MOUTH TWICE DAILY lisinopril-hydrochlorothiazide 10-12.5 mg tablet 1 tab PO DAILY Qty: 30 1RF metoprolol succinate 100 mg tablet extended release 24 hr 100 mg PO DAILY Qty: 90 0RF albuterol sulfate 90 mcg/actuation aerosol powdr breath activated 1 inh inhalation Q4-6H PRN (Reason: shortness of breath) Qty: 1 0RF Referrals: Yoli Camarena MD [Physician] - Greg Sethi ARNP [Primary Care Provider] - Visit Report Forms: Patient Portal/API
[2022-09-08 03:43] LABS: Add Manual Diff / Slide Review NO; Basophils Absolute Auto 100 /uL (0-100); Basophils Percent Auto 0.8 % (0-2); Eosinophils Absolute Auto 300 /uL (0-450); Eosinophils Percent Auto 3.3 % (2-4); Hematocrit 38.4 % (36-46); Hemoglobin 12.9 g/dL (12.0-16.0); Lymphocytes Absolute Auto 3000 /uL (1100-4500); Lymphocytes Percent Auto 29.7 % (25-40); Mean Corpuscular HGB Conc 33.5 % (30-36); Mean Corpuscular Hemoglobin 27.5 PG (26-34); Mean Corpuscular Volume 82.3 fL (80-100); Monocytes Absolute Auto 900 /uL (0-900); Monocytes Percent Auto 8.5 % (3-14); Neutrophils Absolute Auto 5800 /uL (1500-7000); Neutrophils Percent Auto 57.7 % (50-75); Platelet Count 312 X10^3/uL (150-400); Red Blood Cell Count 4.67 X10^6/uL (4.0-5.2); Red Cell Distribution Width 13.4 % (11.6-14.8); White Blood Cell Count 10.1 X10^3/uL (4.5-11.0)
[2022-09-08 03:52] LABS: Alanine Aminotransferase 14 IU/L (<35); Albumin 4.4 g/dL (3.5-5.0); Albumin Globulin Ratio 1.4 (1.0-2.8); Alkaline Phosphatase 77 U/L (38-126); Aspartate Aminotransferase 20 IU/L (14-36); BUN Creatinine Ratio 22.9 (6-22); Bilirubin Total 0.4 mg/dL (0.2-1.3); Blood Urea Nitrogen 11 mg/dL (7-17); Calcium 8.9 mg/dL (8.4-10.2); Carbon Dioxide 21 mmol/L (22-32); Chloride 107 mmol/L (98-107); Creatine Kinase 62 U/L (30-135); Estimated Glomerular Filt Rate > 60 mL/min (>60); Globulin 3.2 g/dL (1.7-4.1); Glucose 103 mg/dL (70-100); HEMOLYSIS < 15 (0-50); Lactate Dehydrogenase 148 U/L (120-246); Magnesium 1.8 mg/dL (1.6-2.3); Potassium 3.8 mmol/L (3.4-5.1); Sodium 137 mmol/L (137-145); Total Protein 7.6 g/dL (6.3-8.2); Uric Acid 6.1 mg/dL (2.5-6.2)
[2022-09-08 04:04] LABS: NT-proBNP (BNP-Adult 18+) 42 pg/mL (<125); Troponin I < 0.012 ng/mL (0.01-0.034)
[2022-09-08 04:09] LABS: HCG Quantitative /Beta subunit 486.8 mIU/mL
[2022-09-08] MEDS: LABETALOL 20 MG/4 ML SYRINGE IV (04:12)
[2022-09-08] MEDS: LABETALOL 100 MG TABLET PO (04:56)
== END 2022-09-08 05:53 | disposition home or self-care (01) ==
PROVIDERS: Emergency Provider Emergency Medicine; PCP Registered Nurse Diabetes Educator
DX: O10.919 Unspecified pre-existing hypertension complicating pregnancy, unspecified trimester (principal); Z3A.01 Less than 8 weeks gestation of pregnancy
CPT/HCPCS: 36415; 80053; 82550; 83615; 83735; 83880; 84484; 84550; 84702; 85025; 86900; 86901; 93005; 96374; 99284

== ENCOUNTER → 2022-09-27 07:14 | Outpatient (CLI) | payer OTHER, SELFPAY ==
--- NOTE | 2022-09-27 07:15 | DI.US.S_ITS ---
PROCEDURE: US OB <= 14 WEEKS FETUS INDICATIONS: DATES OUTSIDE/PRIOR DATING DATA: Last menstrual period (LMP): September 20, 2022. LMP-based estimated date of delivery (JUSTICE): April 27, 2023. First dating scan (date and location): September 27, 2022. [facility]. Estimated date of delivery (JUSTICE) from first dating scan: May 16, 2023 TECHNIQUE: Real-time scanning was performed of the fetus and maternal pelvic organs, with image documentation. Endovaginal scanning was also performed to better visualize the fetus and maternal ovaries. COMPARISON: None. FINDINGS: Embryo: 0.9 cm crown-rump length. 7 weeks 0 days Heart rate: 150 BPM Maternal organs: The right ovary is not visualized. The left ovary has a normal sonographic appearance. IMPRESSION: 1. Single live intrauterine gestation with a gestational age of 7 weeks, 0 days by crown-rump length. 2. Right ovary not visualized. Left ovary has a normal sonographic appearance. We strive to produce accurate, complete, and clear reports of imaging services. To assist us in improving patient care, this report was composed using standard report templates and voice recognition software. Therefore, it may contain abnormal punctuation, insertions and/or omissions. Occasional wrong-word or sound-alike substitutions may occur. Though we review the report and make efforts to correct it, we do recommend that the report be read carefully in proper context to recognize any text inaccuracies. Dictated by: Carmen Ocampo M.D. on 09/27/2022 at 8:29 Approved by: Carmen Ocampo M.D. on 09/27/2022 at 8:33
== END ==
PROVIDERS: PCP Registered Nurse Diabetes Educator; Referring Provider Obstetrics & Gynecology; Visit Provider Obstetrics & Gynecology
DX: Z34.81 Encounter for supervision of other normal pregnancy, first trimester (principal); Z3A.01 Less than 8 weeks gestation of pregnancy
CPT/HCPCS: 76801; 76817

== ENCOUNTER → 2022-10-08 14:31 | Outpatient (CLI) | payer OTHER, SELFPAY ==
[2022-10-09 01:05] LABS: Urine N gonorrhoeae NOT DETECTED
[2022-10-09 01:15] LABS: Urine Chlamydia NOT DETECTED
== END ==
PROVIDERS: PCP Registered Nurse Diabetes Educator; Visit Provider Obstetrics & Gynecology
DX: Z34.81 Encounter for supervision of other normal pregnancy, first trimester (principal); Z3A.11 11 weeks gestation of pregnancy
CPT/HCPCS: 87491; 87591

== ENCOUNTER → 2022-10-08 15:18 | Outpatient (CLI) | payer OTHER, SELFPAY ==
[2022-10-08 16:48] LABS: Appearance Urine UA CLEAR; Bilirubin Urine UA NEGATIVE (NEGATIVE); Color Urine UA YELLOW; Glucose Urine UA NEGATIVE (Negative); Ketones Urine UA NEGATIVE (NEGATIVE); Leukocyte Esterase Urine UA NEGATIVE (NEGATIVE); Nitrite Urine UA NEGATIVE (Negative); Occult Blood Urine UA NEGATIVE (Negative); Protein Urine UA NEGATIVE (Negative); Urobilinogen Urine UA 0.2 E.U./dL (0.2)
[2022-10-08 16:51] LABS: pH Urine UA 6.5 (4.5-8.0)
[2022-10-08 16:56] LABS: Add Manual Diff / Slide Review NO; Basophils Absolute Auto 100 /uL (0-100); Basophils Percent Auto 0.9 % (0-2); Eosinophils Absolute Auto 200 /uL (0-450); Eosinophils Percent Auto 2.2 % (2-4); Hematocrit 36.7 % (36-46); Hemoglobin 12.3 g/dL (12.0-16.0); Lymphocytes Absolute Auto 2100 /uL (1100-4500); Lymphocytes Percent Auto 18.7 % (25-40); Mean Corpuscular HGB Conc 33.4 % (30-36); Mean Corpuscular Volume 83.7 fL (80-100); Monocytes Absolute Auto 700 /uL (0-900); Neutrophils Absolute Auto 8000 /uL (1500-7000); Neutrophils Percent Auto 72.2 % (50-75); Platelet Count 342 X10^3/uL (150-400); Red Blood Cell Count 4.39 X10^6/uL (4.0-5.2); Red Cell Distribution Width 13.2 % (11.6-14.8); White Blood Cell Count 11.1 X10^3/uL (4.5-11.0)
[2022-10-08 17:01] LABS: Protein (Total) Urine Random 14 mg/dL (0-12)
[2022-10-08 17:02] LABS: Alanine Aminotransferase 12 IU/L (<35); Aspartate Aminotransferase 24 IU/L (14-36); BUN Creatinine Ratio 19.2 (6-22); Blood Urea Nitrogen 10 mg/dL (7-17); Estimated Glomerular Filt Rate > 60 mL/min (>60); Uric Acid 4.8 mg/dL (2.5-6.2)
[2022-10-08 17:37] LABS: Hepatitis B Surface Antigen NEGATIVE s/c (NEGATIVE)
[2022-10-08 17:38] LABS: Rubella Antibody IgG > 350.0 IU/mL (>15)
[2022-10-08 17:54] LABS: HIV 1 & 2 Ab/Ag 4th Gen Combo NEGATIVE (NEGATIVE); Hep C Virus Ab w/Reflex Quant NEGATIVE s/c (NEGATIVE)
[2022-10-08 21:22] LABS: Creatinine Urine Random 29.1 mg/dL
[2022-10-08 21:25] LABS: Microalbumi Creatinin Ratio Ur 34.3 ug/mg CR (<30)
[2022-10-09 08:11] LABS: RPR Screen Non Reactive (Non Reactive); Varicella IgG Antibody 1466 index (Immune >165)
== END ==
PROVIDERS: PCP Registered Nurse Diabetes Educator; Referring Provider Obstetrics & Gynecology; Visit Provider Obstetrics & Gynecology
DX: O16.1 Unspecified maternal hypertension, first trimester (principal); Z20.828 Contact with and (suspected) exposure to other viral communicable diseases; R80.9 Proteinuria, unspecified; Z3A.11 11 weeks gestation of pregnancy
CPT/HCPCS: 36415; 80055; 81003; 82043; 82565; 82570; 84156; 84450; 84460; 84520; 84550; 86644; 86645; 86787; 86803; 86850; 86900; 86901; 87389; 87491; 87591

== ENCOUNTER → 2022-10-30 11:20 | Outpatient (CLI) | payer OTHER, SELFPAY ==
[2022-10-30 11:56] LABS: Specimen Label kit test (natera)
[2022-10-30 13:21] LABS: Alanine Aminotransferase 11 IU/L (<35); Albumin 4.2 g/dL (3.5-5.0); Albumin Globulin Ratio 1.5 (1.0-2.8); Alkaline Phosphatase 51 U/L (38-126); Aspartate Aminotransferase 18 IU/L (14-36); BUN Creatinine Ratio 18.9 (6-22); Bilirubin Total 0.4 mg/dL (0.2-1.3); Blood Urea Nitrogen 7 mg/dL (7-17); Calcium 9.3 mg/dL (8.4-10.2); Carbon Dioxide 25 mmol/L (22-32); Chloride 104 mmol/L (98-107); Estimated Glomerular Filt Rate > 60 mL/min (>60); Globulin 2.8 g/dL (1.7-4.1); Glucose 80 mg/dL (70-100); HEMOLYSIS < 15 (0-50); Potassium 4.1 mmol/L (3.4-5.1); Sodium 134 mmol/L (137-145)
[2022-10-30 13:28] LABS: Creatinine, Serum (CRCL) 0.38 mg/dL (0.52-1.04)
[2022-10-30 15:46] LABS: Creatinine Urine Random 36.7 mg/dL
[2022-11-01 12:55] LABS: Collection Time Urine 24 Hours; Creatinine Clearance Urine 315.2 mL/MIN; Total Volume Urine 4700 mL
== END ==
PROVIDERS: PCP Registered Nurse Diabetes Educator; Referring Provider Obstetrics & Gynecology; Visit Provider Obstetrics & Gynecology
DX: O16.1 Unspecified maternal hypertension, first trimester (principal)
CPT/HCPCS: 36415; 80053; 82575

== ENCOUNTER → 2022-11-01 11:28 | Outpatient (CLI) | payer OTHER, SELFPAY ==
[2022-11-01 12:54] LABS: Collection Time Urine 24 Hours; Total Volume Urine 4700 mL
[2022-11-01 14:24] LABS: Protein (Total) Urine Random 15 mg/dL (0-12); Total Protein 24 Hour Urine 705 mg/day (42-225)
== END ==
PROVIDERS: PCP Registered Nurse Diabetes Educator; Referring Provider Obstetrics & Gynecology; Visit Provider Obstetrics & Gynecology
DX: O16.1 Unspecified maternal hypertension, first trimester (principal)
CPT/HCPCS: 84156

== ENCOUNTER → 2022-11-06 09:48 | Outpatient (CLI) | payer OTHER, SELFPAY | PROVIDERS: PCP Registered Nurse Diabetes Educator; Visit Provider Obstetrics & Gynecology | DX: Z34.81 Encounter for supervision of other normal pregnancy, first trimester (principal) | CPT/HCPCS: 87086 ==

== ENCOUNTER → 2022-12-10 11:30 | Outpatient (CLI) | payer OTHER, SELFPAY ==
[2022-12-12 19:30] LABS: AFP Value 38.4 ng/mL (.); Gest Age on Col Date 17.6 weeks (.); Insulin Dep Diabetes No (.); OSBR Risk 1IN 10000 (.); Results Report (.); Test Results *Screen Negative* (.)
== END ==
PROVIDERS: PCP Registered Nurse Diabetes Educator; Referring Provider Specialist; Visit Provider Specialist
DX: Z34.82 Encounter for supervision of other normal pregnancy, second trimester (principal); Z3A.17 17 weeks gestation of pregnancy
CPT/HCPCS: 36415; 82105

== ENCOUNTER 2023-01-02 02:58 | Observation (INO) | payer OTHER, SELFPAY ==
--- NOTE | 2023-01-02 03:03 | DI.US.S_ITS ---
PROCEDURE: US OB LIMITED INDICATIONS: PTL OUTSIDE/PRIOR DATING DATA: Last menstrual period (LMP): 07/21/2022. LMP-based estimated date of delivery (JUSTICE): 04/27/2023. First dating scan (date and location): 09/27/2022. Estimated date of delivery (JUSTICE) from first dating scan: 05/16/2023. The calculations are made using the working JUSTICE of 05/16/2023. TECHNIQUE: Real-time scanning was performed of the fetus, with image documentation and biometric measurements. Biophysical profile was also obtained. COMPARISON: [facility], , OB >= 14 WEEKS FETUS, 12/10/2022, 11:21. [facility], OB <= 14 WEEKS FETUS, 11/06/2022, 9:53. [facility], OB <= 14 WEEKS FETUS, 10/08/2022, 14:59. [facility], US OB <= 14 WEEKS FETUS, 09/27/2022, 7:20. FINDINGS: General: A single living intrauterine gestation is present. Presentation: Transverse head to the right. Placenta: Placental position is posterior, without previa. Amniotic fluid index: 13.1 cm, normal range is 5-24 cm. Single deepest vertical pocket is 3.8 cm. heart rate: 132 beats per minute. Maternal cervical canal: 5.0 cm long. Normal lower limit is 2.5 cm. biometrics: Not performed. Clinically estimated gestational age: 20 weeks 6 days IMPRESSION: 1. A single living intrauterine gestation redemonstrated. 2. Cervix is closed at 5.0 cm in length. 3. Normal KESHIA. No significant discrepancy with the cylinder checker radiology preliminary report. We strive to produce accurate, complete, and clear reports of imaging services. To assist us in improving patient care, this report was composed using standard report templates and voice recognition software. Therefore, it may contain abnormal punctuation, insertions and/or omissions. Occasional wrong-word or sound-alike substitutions may occur. Though we review the report and make efforts to correct it, we do recommend that the report be read carefully in proper context to recognize any text inaccuracies. Dictated by: Latha Christian M.D. on 01/02/2023 at 8:22 Approved by: Latha Christian M.D. on 01/02/2023 at 8:25
[2023-01-02 03:33] LABS: Appearance Urine UA CLEAR; Bilirubin Urine UA NEGATIVE (NEGATIVE); Color Urine UA YELLOW; Glucose Urine UA NEGATIVE (Negative); Ketones Urine UA NEGATIVE (NEGATIVE); Leukocyte Esterase Urine UA NEGATIVE (NEGATIVE); Nitrite Urine UA NEGATIVE (Negative); Occult Blood Urine UA NEGATIVE (Negative); Protein Urine UA NEGATIVE (Negative); Urobilinogen Urine UA 0.2 E.U./dL (0.2)
[2023-01-02 03:40] LABS: Bacteria Urine Few (2-10); RBC Urine None Seen (0-5/HPF); Squamous Epithelial Cell Urine 1-5 /HPF (0-5/HPF); WBC Urine None Seen (0-5/HPF)
[2023-01-02 03:41] LABS: Culture Indicated Urine Cult Not Indicated
[2023-01-02 04:28] LABS: Fetal Fibronectin Negative
[2023-01-02] MEDS: LACTATED RINGERS 1,000 ML 1000 ML IV (04:45)
--- NOTE | 2023-01-02 04:50 | P.TNLD_ITS ---
Visit Information Visit Information Date of evaluation: 01/02/23 Primary OB Provider: Yoli Camarena On-call OB Provider: Opal Henry Reason for Evaluation: Yes other Comments/Additional reasons for admission: 32YO @ 20wks 5 days here for evaluation of cramping and low back pain. Cramping started yesterday at 5pm and became painful at 10pm. Took Tylenol 975mg with no relief. Feeling FM. No vaginal bleeding or leaking of fluid. complicated by chronic HTN (managed with Labetolol 200mg TID and Nifedipine 30XL/day), possible arachnoid cyst (referred to [facility] 12/17/2022; MR performed 12/31/2022), and low lying/ marginal previa for which she has been on strict pelvic rest. Has been drinking and feels well hydrated. No urinary or vaginal concerns. Vital Signs Vital Signs: Serial BPs: 150/89, 156/87, 135/85, 141/86, 13/85, 134/87 HR 88bpm , T 36.4C temporal PFSH Medical History (Updated 01/02/23 @ 15:20 by Opal Henry CNM) Anxiety Chicken pox (~1995) Contraceptive use Fibroadenoma of left breast Immunization due Irregular menstrual cycle Mass of breast, left Surgical History (Updated 10/08/22 @ 15:37 by Yoli Camarena MD) History of section (~07/02/19) [place] teeth removed (~2013) Family History (Updated 09/18/22 @ 09:19 by Luda Peter RN) Mother Hypertension Hyperlipidemia Father Hypertension Hyperlipidemia Grandmother Hypertension Hyperlipidemia Grandfather Hypertension Hyperlipidemia Family/Other Diabetes mellitus Hypertension Social History marital status: household members: spouse and children lives independently: Yes caregiver/support person: Yes housing: house pets and animals: No education level: college (associate's degree) 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[employer]) current occupational exposures/hazards: Yes (always wears gloves w/ chemicals and hazardous meds, mask @ work) special niall needs: No travel history: over 6 months ago seatbelt use: always water heater temp set < 120 deg: Yes working smoke detector in home: Yes fire extinguisher in home: Yes carbon monox detector in home: Yes firearms in home: No do you feel safe at home: Yes Smoking Status: Never smoker second hand exposure: No alcohol intake: former (1-2/week when not ) substance use type: does not use during the past year weight has: remained stable well-balanced diet: about half the time daily servings fruits/ve-4 caffeine: No Type(s) of exercise: none Review of Systems Review of Systems ROS: Yes All systems reviewed with the patient and are negative except as otherwise documented Exam Vital Signs (past 8 hours): see above Objective Imaging OB US >14 wks Limited: My impression: Cervical length 5cm, KESHIA- normal, per [employer] tech Labs 01/02/23 04:45 01/02/23 04:45 Labs: Laboratory Results - last 24 hr 01/02/23 01/02/23 03:10 03:25 Urine Color Yellow Urine Appearance Clear Urine pH 7.0 Ur Specific [place] 1.010 Urine Protein Negative Urine Glucose (UA) Negative Urine Ketones Negative Urine Occult Blood Negative Urine Nitrate Negative Urine Bilirubin Negative Urine Urobilinogen 0.2 Ur Leukocyte Esterase Negative Urine RBC None seen Urine WBC None seen Ur Squamous Epith Cells 1-5 /hpf Urine Bacteria Few (2-10) H Ur Culture Indicated? Cult not indicated Fibronectin Negative Evaluation Evaluation Baseline heart rate: 135 Cervical dilation (cm): 0 Diagnosis, Plan/Disposition Final Diagnosis (1) contractions: Status: Acute Problem details: mild cramping resolved with 1L LR IVFB and a single dose of nifedipine IR 10mg Plan/Disposition Plan: Reassurance given for no concern for infection or labor. Reviewed warning sx and encouraged her to andreas if symptoms recur and to follow up with her provider as previously scheduled. OB Disposition: home
[2023-01-02] MEDS: NIFEdipine 10 MG CAPSULE PO ×2 (05:03→05:25)
[2023-01-02 05:05] LABS: Add Manual Diff / Slide Review NO; Basophils Absolute Auto 100 /uL (0-100); Basophils Percent Auto 0.8 % (0-2); Eosinophils Absolute Auto 400 /uL (0-450); Hematocrit 32.7 % (36-46); Lymphocytes Absolute Auto 2500 /uL (1100-4500); Lymphocytes Percent Auto 19.2 % (25-40); Mean Corpuscular HGB Conc 33.5 % (30-36); Mean Corpuscular Hemoglobin 28.5 PG (26-34); Mean Corpuscular Volume 85.1 fL (80-100); Monocytes Absolute Auto 900 /uL (0-900); Monocytes Percent Auto 6.6 % (3-14); Neutrophils Absolute Auto 9300 /uL (1500-7000); Neutrophils Percent Auto 70.4 % (50-75); Platelet Count 261 X10^3/uL (150-400); Red Blood Cell Count 3.85 X10^6/uL (4.0-5.2); Red Cell Distribution Width 13.1 % (11.6-14.8); White Blood Cell Count 13.2 X10^3/uL (4.5-11.0)
[2023-01-02 05:17] LABS: Aspartate Aminotransferase 20 IU/L (14-36); BUN Creatinine Ratio 22.5 (6-22); Blood Urea Nitrogen 9 mg/dL (7-17); Estimated Glomerular Filt Rate > 60 mL/min (>60); Uric Acid 4.1 mg/dL (2.5-6.2)
== END 2023-01-02 06:25 | disposition home or self-care (01) ==
LOC: LABOR 03:01
PROVIDERS: Admitting Provider Nurse Practitioner Obstetrics & Gynecology; PCP Registered Nurse Diabetes Educator; Referring Provider Obstetrics & Gynecology; Visit Provider Nurse Practitioner Obstetrics & Gynecology
DX: O47.02 False labor before 37 completed weeks of gestation, second trimester (principal); Z3A.20 20 weeks gestation of pregnancy
CPT/HCPCS: 59025; 59050; 76815; 81001; 82731; 84450; 84550; 85025; 87086; 87210; 96360; 96361; G0378; G0379

== ENCOUNTER → 2023-01-27 10:27 | Outpatient (CLI) | payer OTHER, SELFPAY ==
[2023-01-27 12:16] LABS: Hematocrit 33.1 % (36-46); Hemoglobin 11.1 g/dL (12.0-16.0)
[2023-01-27 12:32] LABS: GTT (PREG) 1 Hour PP 50gm Dose 155 mg/dL (76-139)
== END ==
PROVIDERS: PCP Registered Nurse Diabetes Educator; Referring Provider Obstetrics & Gynecology; Visit Provider Obstetrics & Gynecology
DX: O09.299 Supervision of pregnancy with other poor reproductive or obstetric history, unspecified trimester (principal); Z86.32 Personal history of gestational diabetes; Z3A.24 24 weeks gestation of pregnancy
CPT/HCPCS: 36415; 82950; 85014; 85018

== ENCOUNTER → 2023-03-10 11:24 | Outpatient (CLI) | payer OTHER, SELFPAY ==
[2023-03-10 16:21] LABS: Collection Time Urine 24 Hours; Protein (Total) Urine Random 14 mg/dL (0-12); Total Protein 24 Hour Urine 420 mg/day (42-225); Total Volume Urine 3000 mL
== END ==
PROVIDERS: PCP Registered Nurse Diabetes Educator; Referring Provider Obstetrics & Gynecology; Visit Provider Obstetrics & Gynecology
DX: O14.90 Unspecified pre-eclampsia, unspecified trimester (principal)
CPT/HCPCS: 84156

== ENCOUNTER 2023-03-19 10:44 | Outpatient (CLI) | payer OTHER, SELFPAY | END 2023-03-19 11:20 | disposition home or self-care (01) | LOC: LABOR 11:34 → OB 03-21 06:19 | PROVIDERS: PCP Registered Nurse Diabetes Educator; Referring Provider Obstetrics & Gynecology; Visit Provider Obstetrics & Gynecology | DX: O24.419 Gestational diabetes mellitus in pregnancy, unspecified control (principal); O13.3 Gestational [pregnancy-induced] hypertension without significant proteinuria, third trimester; Z3A.31 31 weeks gestation of pregnancy | CPT/HCPCS: 59025; G0378; G0379 ==

== ENCOUNTER 2023-03-23 11:17 | Outpatient (CLI) | payer OTHER, SELFPAY | END 2023-03-23 12:12 | disposition home or self-care (01) | LOC: LABOR 12:11 → OB 03-24 09:50 | PROVIDERS: PCP Registered Nurse Diabetes Educator; Referring Provider Obstetrics & Gynecology; Visit Provider Obstetrics & Gynecology | DX: O24.419 Gestational diabetes mellitus in pregnancy, unspecified control (principal); O13.3 Gestational [pregnancy-induced] hypertension without significant proteinuria, third trimester; Z3A.32 32 weeks gestation of pregnancy | CPT/HCPCS: 59025; G0378; G0379 ==

== ENCOUNTER 2023-03-26 09:59 | Outpatient (CLI) | payer OTHER, SELFPAY | END 2023-03-26 10:53 | disposition home or self-care (01) | LOC: LABOR 10:07 → OB 04-02 08:47 | PROVIDERS: PCP Registered Nurse Diabetes Educator; Referring Provider Obstetrics & Gynecology; Visit Provider Obstetrics & Gynecology | DX: O24.419 Gestational diabetes mellitus in pregnancy, unspecified control (principal); O13.3 Gestational [pregnancy-induced] hypertension without significant proteinuria, third trimester; Z3A.32 32 weeks gestation of pregnancy | CPT/HCPCS: 59025; G0378; G0379 ==

== ENCOUNTER 2023-03-30 10:46 | Outpatient (CLI) | payer OTHER, SELFPAY | END 2023-03-30 11:30 | disposition home or self-care (01) | LOC: OB 04-02 08:49 | PROVIDERS: PCP Registered Nurse Diabetes Educator; Referring Provider Obstetrics & Gynecology; Visit Provider Obstetrics & Gynecology | DX: O24.419 Gestational diabetes mellitus in pregnancy, unspecified control (principal); O16.3 Unspecified maternal hypertension, third trimester; Z3A.33 33 weeks gestation of pregnancy | CPT/HCPCS: 59025; G0378; G0379 ==

== ENCOUNTER 2023-04-02 10:45 | Outpatient (CLI) | payer OTHER, SELFPAY | END 2023-04-02 11:40 | disposition home or self-care (01) | LOC: LABOR 12:22 → OB 04-04 16:11 | PROVIDERS: PCP Registered Nurse Diabetes Educator; Referring Provider Obstetrics & Gynecology; Visit Provider Obstetrics & Gynecology | DX: O24.419 Gestational diabetes mellitus in pregnancy, unspecified control (principal); O13.3 Gestational [pregnancy-induced] hypertension without significant proteinuria, third trimester; Z3A.33 33 weeks gestation of pregnancy | CPT/HCPCS: 59025; G0378; G0379 ==

== ENCOUNTER 2023-04-06 10:49 | Outpatient (CLI) | payer OTHER, SELFPAY | END 2023-04-06 11:20 | disposition home or self-care (01) | LOC: OB 04-10 14:52 | PROVIDERS: PCP Registered Nurse Diabetes Educator; Referring Provider Obstetrics & Gynecology; Visit Provider Obstetrics & Gynecology | DX: O24.419 Gestational diabetes mellitus in pregnancy, unspecified control (principal); O13.3 Gestational [pregnancy-induced] hypertension without significant proteinuria, third trimester; Z3A.34 34 weeks gestation of pregnancy | CPT/HCPCS: 59025; G0378; G0379 ==

== ENCOUNTER 2023-04-09 10:52 | Outpatient (CLI) | payer OTHER, SELFPAY | END 2023-04-09 11:30 | disposition home or self-care (01) | LOC: LABOR 11:24 → OB 04-10 14:48 | PROVIDERS: PCP Registered Nurse Diabetes Educator; Referring Provider Obstetrics & Gynecology; Visit Provider Obstetrics & Gynecology | DX: O24.419 Gestational diabetes mellitus in pregnancy, unspecified control (principal); O13.3 Gestational [pregnancy-induced] hypertension without significant proteinuria, third trimester; Z3A.34 34 weeks gestation of pregnancy | CPT/HCPCS: 59025; G0378; G0379 ==

== ENCOUNTER 2023-04-10 15:37 | Outpatient (CLI) | payer OTHER, SELFPAY | END 2023-04-10 16:08 | disposition home or self-care (01) | LOC: LABOR 15:46 → OB 04-17 09:01 | PROVIDERS: PCP Registered Nurse Diabetes Educator; Referring Provider Obstetrics & Gynecology; Visit Provider Obstetrics & Gynecology | DX: O24.419 Gestational diabetes mellitus in pregnancy, unspecified control (principal); O13.3 Gestational [pregnancy-induced] hypertension without significant proteinuria, third trimester; Z3A.35 35 weeks gestation of pregnancy | CPT/HCPCS: 59025; G0378; G0379 ==

== ENCOUNTER 2023-04-13 11:12 | Outpatient (CLI) | payer OTHER, SELFPAY ==
--- NOTE | 2023-04-13 11:46 | P.TNLD_ITS ---
Visit Information Visit Information Date of evaluation: 04/13/23 Primary OB Provider: Yoli Camarena On-call OB Provider: Gita Gee Reason for Evaluation: Yes non-stress test non-stress test reason: diabetes and hypertension/pre-eclampsia Vital Signs Vital Signs: BP 117/62, P85, T35.7 [facility] Medical History (Updated 04/13/23 @ 11:55 by Gita Gee MD) Anxiety Chicken pox (~1995) Contraceptive use Fibroadenoma of left breast Immunization due Irregular menstrual cycle Mass of breast, left Surgical History (Updated 10/08/22 @ 15:37 by Yoli Camarena MD) History of section (~07/02/19) [place] teeth removed (~2013) Family History (Updated 09/18/22 @ 09:19 by Luda Peter RN) Mother Hypertension Hyperlipidemia Father Hypertension Hyperlipidemia Grandmother Hypertension Hyperlipidemia Grandfather Hypertension Hyperlipidemia Family/Other Diabetes mellitus Hypertension Social History marital status: household members: spouse and children lives independently: Yes caregiver/support person: Yes housing: house pets and animals: No education level: college (associate's degree) 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[employer]) current occupational exposures/hazards: Yes (always wears gloves w/ chemicals and hazardous meds, mask @ work) special niall needs: No travel history: over 6 months ago seatbelt use: always water heater temp set < 120 deg: Yes working smoke detector in home: Yes fire extinguisher in home: Yes carbon monox detector in home: Yes firearms in home: No do you feel safe at home: Yes Smoking Status: Never smoker second hand exposure: No alcohol intake: former (1-2/week when not ) substance use type: does not use during the past year weight has: remained stable well-balanced diet: about half the time daily servings fruits/ve-4 caffeine: No Type(s) of exercise: none Evaluation Evaluation Baseline heart rate: 130 Variability: Moderate (11-25) monitor accelerations: Present Monitor Decelerations: Absent Contraction Frequency (minutes): 0 Category of Tracing: Reactive Status: Category l Diagnosis, Plan/Disposition Final Diagnosis (1) Gestational diabetes: Status: Acute (2) Chronic hypertension: Status: Acute (3) 35 weeks gestation of : Status: Acute Plan/Disposition Plan: Reactive NST. Continue biweekly NST and weekly OB visits. OB Disposition: home
== END 2023-04-13 11:47 | disposition home or self-care (01) ==
LOC: OB 04-17 08:58
PROVIDERS: PCP Registered Nurse Diabetes Educator; Referring Provider Specialist; Visit Provider Specialist
DX: O24.419 Gestational diabetes mellitus in pregnancy, unspecified control (principal); O10.913 Unspecified pre-existing hypertension complicating pregnancy, third trimester; Z3A.35 35 weeks gestation of pregnancy
CPT/HCPCS: 59025; G0378; G0379

== ENCOUNTER 2023-04-16 08:45 | Outpatient (CLI) | payer OTHER, SELFPAY ==
--- NOTE | 2023-04-16 09:18 | PM.OBTRLD ---
Visit Information Visit Information Date of evaluation: 04/16/23 Primary OB Provider: Yoli Camarena On-call OB Provider: Gita Gee Reason for Evaluation: Yes non-stress test non-stress test reason: diabetes and hypertension/pre-eclampsia Vital Signs Vital Signs: Blood pressure 124/72, pulse of 81, temperature 36.5? [facility] Medical History (Updated 04/16/23 @ 09:19 by Gita Gee MD) Anxiety Chicken pox (~1995) Contraceptive use Fibroadenoma of left breast Immunization due Irregular menstrual cycle Mass of breast, left Surgical History (Updated 10/08/22 @ 15:37 by Yoli Camarena MD) History of section (~07/02/19) [place] teeth removed (~2013) Family History (Updated 09/18/22 @ 09:19 by Luda Peter RN) Mother Hypertension Hyperlipidemia Father Hypertension Hyperlipidemia Grandmother Hypertension Hyperlipidemia Grandfather Hypertension Hyperlipidemia Family/Other Diabetes mellitus Hypertension Social History marital status: household members: spouse and children lives independently: Yes caregiver/support person: Yes housing: house pets and animals: No education level: college (associate's degree) 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[employer]) current occupational exposures/hazards: Yes (always wears gloves w/ chemicals and hazardous meds, mask @ work) special niall needs: No travel history: over 6 months ago seatbelt use: always water heater temp set < 120 deg: Yes working smoke detector in home: Yes fire extinguisher in home: Yes carbon monox detector in home: Yes firearms in home: No do you feel safe at home: Yes Smoking Status: Never smoker second hand exposure: No alcohol intake: former (1-2/week when not ) substance use type: does not use during the past year weight has: remained stable well-balanced diet: about half the time daily servings fruits/ve-4 caffeine: No Type(s) of exercise: none Evaluation Evaluation Baseline heart rate: 130 Variability: Moderate (11-25) monitor accelerations: Present Monitor Decelerations: Absent Contraction Frequency (minutes): 0 Category of Tracing: Reactive Status: Category l Diagnosis, Plan/Disposition Final Diagnosis (1) 35 weeks gestation of : Status: Acute (2) Gestational diabetes: Status: Acute (3) Chronic hypertension: Status: Acute Plan/Disposition Plan: Reactive nonstress test. Biophysical profile and KESHIA normal in the office today. Continue twice weekly nonstress tests and weekly office visits with KESHIA and [facility] OB Disposition: home
== END 2023-04-16 09:20 | disposition home or self-care (01) ==
LOC: OB 04-17 07:39
PROVIDERS: PCP Registered Nurse Diabetes Educator; Referring Provider Obstetrics & Gynecology; Visit Provider Obstetrics & Gynecology
DX: O24.419 Gestational diabetes mellitus in pregnancy, unspecified control (principal); O10.913 Unspecified pre-existing hypertension complicating pregnancy, third trimester; Z3A.35 35 weeks gestation of pregnancy
CPT/HCPCS: 59025; G0378; G0379

== ENCOUNTER 2023-04-19 16:41 | Outpatient (CLI) | payer OTHER, SELFPAY ==
--- NOTE | 2023-04-20 11:05 | P.TNLD_ITS ---
Visit Information Visit Information Date of evaluation: 04/19/23 Primary OB Provider: Yoli Camarena On-call OB Provider: Gita Gee Reason for Evaluation: Yes non-stress test non-stress test reason: diabetes and hypertension/pre-eclampsia Comments/Additional reasons for admission: Decreased movement Vital Signs Vital Signs: Blood pressure 123/74, pulse of 87, temperature 36.0? [facility] Medical History (Updated 04/20/23 @ 11:07 by Gita Gee MD) Anxiety Chicken pox (~1995) Contraceptive use Fibroadenoma of left breast Immunization due Irregular menstrual cycle Mass of breast, left Surgical History (Updated 10/08/22 @ 15:37 by Yoli Camarena MD) History of section (~07/02/19) [place] teeth removed (~2013) Family History (Updated 09/18/22 @ 09:19 by Luda Peter RN) Mother Hypertension Hyperlipidemia Father Hypertension Hyperlipidemia Grandmother Hypertension Hyperlipidemia Grandfather Hypertension Hyperlipidemia Family/Other Diabetes mellitus Hypertension Social History marital status: household members: spouse and children lives independently: Yes caregiver/support person: Yes housing: house pets and animals: No education level: college (associate's degree) 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[employer]) current occupational exposures/hazards: Yes (always wears gloves w/ chemicals and hazardous meds, mask @ work) special niall needs: No travel history: over 6 months ago seatbelt use: always water heater temp set < 120 deg: Yes working smoke detector in home: Yes fire extinguisher in home: Yes carbon monox detector in home: Yes firearms in home: No do you feel safe at home: Yes Smoking Status: Never smoker second hand exposure: No alcohol intake: former (1-2/week when not ) substance use type: does not use during the past year weight has: remained stable well-balanced diet: about half the time daily servings fruits/ve-4 caffeine: No Type(s) of exercise: none Evaluation Evaluation Baseline heart rate: 120 Variability: Moderate (11-25) monitor accelerations: Present Monitor Decelerations: Absent Contraction Frequency (minutes): 0 Category of Tracing: Reactive Status: Category l Diagnosis, Plan/Disposition Final Diagnosis (1) 36 weeks gestation of : Status: Acute (2) Gestational diabetes: Status: Acute (3) Chronic hypertension: Status: Acute (4) Decreased movement affecting management of in third trimester: Status: Acute Plan/Disposition Plan: Reactive nonstress test. Patient is to continue twice weekly nonstress tests and weekly visits. OB Disposition: home
== END 2023-04-19 17:26 | disposition home or self-care (01) ==
LOC: OB 04-28 06:30
PROVIDERS: PCP Registered Nurse Diabetes Educator; Referring Provider Specialist; Visit Provider Specialist
DX: O24.419 Gestational diabetes mellitus in pregnancy, unspecified control (principal); O10.913 Unspecified pre-existing hypertension complicating pregnancy, third trimester; O36.8130 Decreased fetal movements, third trimester, not applicable or unspecified; Z3A.36 36 weeks gestation of pregnancy
CPT/HCPCS: 59025; G0378; G0379

== ENCOUNTER → 2023-04-23 10:13 | Outpatient (CLI) | payer OTHER, SELFPAY ==
[2023-04-24 12:53] LABS: Strep Grp B PCR NEG for Grp B Strep
== END ==
PROVIDERS: PCP Registered Nurse Diabetes Educator; Visit Provider Obstetrics & Gynecology
DX: Z34.83 Encounter for supervision of other normal pregnancy, third trimester (principal); Z3A.36 36 weeks gestation of pregnancy
CPT/HCPCS: 87653

== ENCOUNTER 2023-04-23 10:36 | Outpatient (CLI) | payer OTHER, SELFPAY | END 2023-04-23 11:10 | disposition home or self-care (01) | LOC: OB 04-28 06:32 | PROVIDERS: PCP Registered Nurse Diabetes Educator; Referring Provider Obstetrics & Gynecology; Visit Provider Obstetrics & Gynecology | DX: O24.419 Gestational diabetes mellitus in pregnancy, unspecified control (principal); O13.3 Gestational [pregnancy-induced] hypertension without significant proteinuria, third trimester; Z3A.36 36 weeks gestation of pregnancy; Z34.83 Encounter for supervision of other normal pregnancy, third trimester | CPT/HCPCS: 59025; 87653; G0378; G0379 ==

== ENCOUNTER 2023-04-26 15:01 | Outpatient (CLI) | payer OTHER, SELFPAY ==
--- NOTE | 2023-04-26 15:25 | PM.PROC.1 ---
Procedures Date/Time Date of procedure: 04/26/23 Time of procedure: 15:36 General Procedure description: NST: Patient here for scheduled NST for GHTN, on medication. Baseline: 135 bpm Variability: moderate Accelerations: present Decelerations: none Impression: Reactive NST Plan: follow up with provider as scheduled
== END 2023-04-26 15:37 | disposition home or self-care (01) ==
LOC: OB 05-01 15:06
PROVIDERS: PCP Registered Nurse Diabetes Educator; Referring Provider Advanced Practice Midwife; Visit Provider Advanced Practice Midwife
DX: Z3A.37 37 weeks gestation of pregnancy (principal); O13.3 Gestational [pregnancy-induced] hypertension without significant proteinuria, third trimester
CPT/HCPCS: 59025; G0378; G0379

== ENCOUNTER 2023-04-29 13:04 | Outpatient (CLI) | payer OTHER, SELFPAY | END 2023-04-29 13:36 | disposition home or self-care (01) | LOC: LABOR 13:19 → OB 05-01 15:05 | PROVIDERS: PCP Registered Nurse Diabetes Educator; Referring Provider Obstetrics & Gynecology; Visit Provider Obstetrics & Gynecology | DX: O24.419 Gestational diabetes mellitus in pregnancy, unspecified control (principal); O16.3 Unspecified maternal hypertension, third trimester; Z3A.37 37 weeks gestation of pregnancy | CPT/HCPCS: 59025; G0378; G0379 ==

== ENCOUNTER 2023-05-03 14:52 | Outpatient (CLI) | payer OTHER, SELFPAY ==
--- NOTE | 2023-05-11 16:58 | P.TNLD_ITS ---
Visit Information Visit Information Date of evaluation: 05/03/23 Primary OB Provider: Yoli Camarena On-call OB Provider: Yoli Camarena Reason for Evaluation: Yes non-stress test non-stress test reason: diabetes and hypertension/pre-eclampsia [facility] Medical History (Updated 04/27/23 @ 20:32 by Yoli Camarena MD) Anxiety Chicken pox (~1995) Contraceptive use Fibroadenoma of left breast Immunization due Irregular menstrual cycle Mass of breast, left Surgical History (Updated 10/08/22 @ 15:37 by Yoli Camarena MD) History of section (~07/02/19) [place] teeth removed (~2013) Family History (Updated 09/18/22 @ 09:19 by Luda Peter RN) Mother Hypertension Hyperlipidemia Father Hypertension Hyperlipidemia Grandmother Hypertension Hyperlipidemia Grandfather Hypertension Hyperlipidemia Family/Other Diabetes mellitus Hypertension Social History marital status: household members: spouse and children lives independently: Yes caregiver/support person: Yes housing: house pets and animals: No education level: college (associate's degree) 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[employer]) current occupational exposures/hazards: Yes (always wears gloves w/ chemicals and hazardous meds, mask @ work) special niall needs: No travel history: over 6 months ago seatbelt use: always water heater temp set < 120 deg: Yes working smoke detector in home: Yes fire extinguisher in home: Yes carbon monox detector in home: Yes firearms in home: No do you feel safe at home: Yes Smoking Status: Never smoker second hand exposure: No alcohol intake: former (1-2/week when not ) substance use type: does not use during the past year weight has: remained stable well-balanced diet: about half the time daily servings fruits/ve-4 caffeine: No Type(s) of exercise: none Evaluation Evaluation Baseline heart rate: 125 Variability: Moderate (11-25) monitor accelerations: Present Monitor Decelerations: Absent Category of Tracing: Reactive Diagnosis, Plan/Disposition Plan/Disposition Plan: 37+ wks gestation Chronic HTN Gestational DM Reactive NST OB Disposition: home
== END 2023-05-03 15:42 | disposition home or self-care (01) ==
LOC: OB 05-05 10:39
PROVIDERS: PCP Registered Nurse Diabetes Educator; Referring Provider Obstetrics & Gynecology; Visit Provider Obstetrics & Gynecology
DX: O24.419 Gestational diabetes mellitus in pregnancy, unspecified control (principal); O13.3 Gestational [pregnancy-induced] hypertension without significant proteinuria, third trimester; Z3A.38 38 weeks gestation of pregnancy
CPT/HCPCS: 59025; G0378; G0379

== ENCOUNTER 2023-05-05 05:27 | Inpatient (IN) | payer OTHER, SELFPAY ==
[2023-05-05] VITALS (9 sets, daily range): BP systolic 94–136; BP diastolic 36–90; PULSE 77–100; RESP 18–22; TEMP 36.4; O2SAT 98
--- NOTE | 2023-05-05 | PATH_ITS ---
[facility] Accession Number: [id number] No. of containers..01 Tissue . 01 Material submitted: . fallopian tube - BILATERAL FALLOPIAN TUBES . 01 Diagnosis: Left and Right Fallopian Tubes, Bilateral Salpingectomy: Two fimbriated fallopian tubes without significant pathologic abnormality. MRV 05/13/2023 1745 Local . 01 Comment: Recent blood clot is adherent to one of the fallopian tubes. . 01 Electronically signed: . Nancy Mccormick MD, Pathologist NPI- [id number] . 01 Gross description: . The specimen is received in formalin labeled with the patient's name, , and bilateral fallopian tubes consist of two unoriented, violaceous, fimbriated fallopian tubes. The first measures 8.8 cm in length and 0.8 cm in diameter. No paratubal cysts are seen, and the external surface is inked blue. The second, heavily disrupted and ragged fallopian tube measures 7.7 cm in length and ranges from 0.2 to 1.0 cm in external diameter. A dark red blood clot is noted at the fimbria measuring 1.3 x 1.0 x 1.0 cm. No paratubal cysts are seen. The external surface is inked black. Lumens are identified. Hepatologist sections are submitted as follows: A1-A2: First fallopian tube, fimbria entirely submitted. A3-A4: Second fallopian tube, fimbria and blood clot entirely submitted. ([id number]) /MRV 05/09/2023 1727 Local . 01 Pathologist provided ICD-10: Z30.2 . 01 CPT . 390000 Specimen Comment: A courtesy copy of this report has been sent to [phone] Performed at: 01 [facility] [address], [place], [place] [id number] MD Miguel Baca MD Phone: [phone]
[2023-05-05] MEDS: LACTATED RINGERS 1,000 ML 999 ML IV ×2 (06:15→08:24)
[2023-05-05 06:30] LABS: Add Manual Diff / Slide Review NO; Basophils Absolute Auto 100 /uL (0-100); Basophils Percent Auto 0.5 % (0-2); Eosinophils Absolute Auto 400 /uL (0-450); Eosinophils Percent Auto 3.4 % (2-4); Hemoglobin 10.4 g/dL (12.0-16.0); Lymphocytes Absolute Auto 2100 /uL (1100-4500); Lymphocytes Percent Auto 17.6 % (25-40); Mean Corpuscular HGB Conc 33.5 % (30-36); Mean Corpuscular Hemoglobin 28.2 PG (26-34); Mean Corpuscular Volume 84.1 fL (80-100); Monocytes Absolute Auto 900 /uL (0-900); Monocytes Percent Auto 7.9 % (3-14); Neutrophils Absolute Auto 8200 /uL (1500-7000); Neutrophils Percent Auto 70.6 % (50-75); Platelet Count 178 X10^3/uL (150-400); Red Blood Cell Count 3.69 X10^6/uL (4.0-5.2); White Blood Cell Count 11.7 X10^3/uL (4.5-11.0)
--- NOTE | 2023-05-05 07:09 | P.HPOB_ITS ---
OB HPI Date/Time Date of admission: 05/05/23 Date Patient Seen: 05/05/23 Time Patient Seen: 07:09 History of Present Condition Chief complaint: INPT C SECTION JUSTICE Calculator Estimated Delivery Date Method Current WG Current Estimate 05/16/23 Ultrasound #1 38w 3d Other Estimates 04/27/23 LMP (Certain) 41w 1d 05/15/23 Ultrasound #2 38w 4d Estimated Gestational Age (weeks): 38+3 : 2 Para: 1 care: good care, initiated at week # (8), number of visits (13) and pounds weight gain (8) Dating criteria OB: LMP confirmed by 1st trimester US Ultrasounds: normal 1st trimester US and normal mid trimester US Obstetrical complications: gestational diabetes and gestational hypertension Indications Operative indications ( section): previous uterine surgery Preadmission Labs Last OB Lab Results: Blood Type B Positive 10/08/22 15:38 Antibody Screen Negative 10/08/22 15:38 Hematocrit 31.0 % (36-46) L 05/05/23 06:10 Hemoglobin 10.4 g/dL (12.0-16.0) L 05/05/23 06:10 Hepatitis B Surface Antigen Negative s/c (NEGATIVE) 10/08/22 15 :38 Hepatitis C Antibody Negative s/c (NEGATIVE) 10/08/22 15:38 Rubella Antibody > 350.0 IU/mL (>15) 10/08/22 15:38 Varicella-Zoster IgG Antibody 1466 index (Immune >165) 10/08/22 15:38 Glucose 1 Hour 155 mg/dL (76-139) H 01/27/23 10:38 Group B Streptococcus (PCR) Neg for grp b strep 04/23/23 10:13 -: Chlamydia screen: negative, Gonorrhea screen: negative and Urine: negative -: PAP smear: Normal (07/20) Genetic Screens: Cell-free DNA: Normal (normal female) and Alpha-fetoprotein: Normal External Labs -: Urine: negative Prior (ies) Past Pregnancies Del. Date GA/Weeks Labor Lgth Wt Sex Route Outcome Anesthesia Place Delv Breastfeed Preg Comp Name 07/02/19 39 18 6 lb 11 oz Male live - full term [place] 3-4 months induced hyper- gestational diabetes failure to progress Jae Evaluation Evaluation Baseline heart rate: 135 Variability: Moderate (11-25) monitor accelerations: Present Monitor Decelerations: Absent Category of Tracing: Reactive PFSH Medical History (Updated 04/27/23 @ 20:32 by Yoli Camarena MD) Anxiety Chicken pox (~1995) Contraceptive use Fibroadenoma of left breast Immunization due Irregular menstrual cycle Mass of breast, left Surgical History (Updated 10/08/22 @ 15:37 by Yoli Camarena MD) History of section (~07/02/19) [place] teeth removed (~2013) Family History (Updated 09/18/22 @ 09:19 by Luda Peter RN) Mother Hypertension Hyperlipidemia Father Hypertension Hyperlipidemia Grandmother Hypertension Hyperlipidemia Grandfather Hypertension Hyperlipidemia Family/Other Diabetes mellitus Hypertension Social History marital status: household members: spouse and children lives independently: Yes caregiver/support person: Yes housing: house pets and animals: No education level: college (associate's degree) 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[employer]) current occupational exposures/hazards: Yes (always wears gloves w/ chemicals and hazardous meds, mask @ work) special niall needs: No travel history: over 6 months ago seatbelt use: always water heater temp set < 120 deg: Yes working smoke detector in home: Yes fire extinguisher in home: Yes carbon monox detector in home: Yes firearms in home: No do you feel safe at home: Yes Smoking Status: Never smoker second hand exposure: No alcohol intake: former (1-2/week when not ) substance use type: does not use during the past year weight has: remained stable well-balanced diet: about half the time daily servings fruits/ve-4 caffeine: No Type(s) of exercise: none Meds Home Medications and Allergies Home Medications Medication Instructions Recorded Confirmed Type prenat.vits,andreas,nic-nsjg-ppwsn 1 tab PO DAILY 09/18/22 05/05/23 History nifedipine 30 mg tablet,extended See Rx Instructions .Route 01/01/23 05/05/23 Rx release .COMPLEX #90 tabs Double Electric Breast Pump #1 ea 01/29/23 05/05/23 Rx labetalol 200 mg tablet 200 mg PO TID #270 tabs 03/20/23 05/05/23 Rx calcium 1 tab PO DAILY 05/05/23 05/05/23 History magnesium 250 mg PO DAILY 05/05/23 05/05/23 History Allergies Allergy/AdvReac Type Severity Reaction Status Date / Time No Known Drug Allergies Allergy Verified 05/05/23 06:35 OB Exam Narrative Exam Narrative: Generally: Patient is sitting up in bed, no acute distress HEENT: No thyromegaly, no anterior cervical or supraclavicular lymphadenopathy. Lungs:Clear to auscultation bilaterally, no wheezes. Cardiovascular: Regular rate and rhythm, no murmurs, rubs, or gallops. Abdomen: Well-healed Pfannenstiel scars with keloid. No hepatosplenomegaly. No masses palpable. Fundal height: 38 cm Estimated weight: 7 lb Extremities: No edema Objective Labs 05/05/23 06:10 Labs: Laboratory Results - last 24 hr 05/05/23 06:10 WBC 11.7 H RBC 3.69 L Hgb 10.4 L Hct 31.0 L MCV 84.1 MCH 28.2 MCHC 33.5 RDW 14.0 Plt Count 178 Neut % (Auto) 70.6 Lymph % (Auto) 17.6 L [place] % (Auto) 7.9 Eos % (Auto) 3.4 Baso % (Auto) 0.5 Neut # (Auto) 8200 H Lymph # (Auto) 2100 [place] # (Auto) 900 Eos # (Auto) 400 Baso # (Auto) 100 Assessment and Plan Assessment and Plan Assessment and Plan narrative: Assessment: 32-year-old 2 para 1 at 38-,3/7 weeks gestation with hypertension and gestational diabetes that was well controlled Previous section Desires permanent sterilization Plan: Repeat low-transverse section, bilateral salpingectomy, and scar revision The risks, benefits, and alternatives to the procedure were explained to the patient. The risks including bleeding, infection, injury to the bowel, bladder, or ureters. She understands these risks and agrees to proceed. A full par Q was held and consent form was signed. Time Spent with Patient Total time spent with greater than 50% in coordination of care (as documented) at patient's floor/unit and/or counseling patient:: 15-24 minutes
[2023-05-05] MEDS: CITRIC ACID/SODIUM CITRATE 15 ML SOLUTION 30 ML PO (07:40)
[2023-05-05] MEDS: CEFAZOLIN 2 GM/100 ML PREMIX 100 ML IV (07:49)
--- NOTE | 2023-05-05 08:09 | SUR.OPER ---
Supine on Padded OR bed, head on pillow, safety belt at thigh, arms secured on padded arm boards at <90 degrees abduction. Bump under right buttock. Legs uncrossed with pillow under knees, gel pad to heels, tape over blanket to lower legs.
--- NOTE | 2023-05-05 08:37 | SUR.OPER ---
Pre-procedure FHT= 144. Viable baby girl born at 0831. Placenta delivered at 0834. Placenta and cord blood given to OB RNs.
--- NOTE | 2023-05-05 09:44 | PM.OBCS.1 ---
Operative Date/Time/Diagnoses Date of procedure: 05/05/23 Time of procedure: 09:44 Pre-op diagnosis: Previous C section Keloid scar Desires permanent sterilization Post-op diagnosis: same Procedure & Clinicians Procedure: Repeat low transverse C section Bilateral salpingectomy Scar revision Same procedure as scheduled: Yes Indications: Previous C section Keloid scar Desires permanent sterilization Surgeon: Yoli Camarena Click Yes if Unassisted: No Electrocardiograph Operator: Alice Giraldo Reason for Electrocardiograph Operator: The licensed nursing assistant was necessary to retract upon entry into the abdomen and uterus. She assisted with delivery with fundal pressure. She assisted with closure with retraction, clipping of suture, and closure of the contralateral fascia. Anesthesia Type: Spinal (with Duramorph) Operative Notes Findings: Live female in the JOSELYN presentation Nuchal cord x 2 Normal uterus, tubes and ovaries Closure Type: primary Specimen(s): cord blood, placenta and tubes/segments of tubes Intraoperative meds administered: Duramorph, Ketorolac and Pitocin Applied: Catheter (To continuous drainage) Estimated Blood Loss (mL): 300 Blood products transfused: none Procedure in detail: The patient was taken to the operating room where she was placed in the seated position. Spinal anesthesia with Duramorph was administered. The patient was then placed in the dorsal supine position with a leftward tilt. She was prepped and draped in the usual sterile fashion. A timeout was performed. After spinal analgesia was found to be adequate, the previous incision was excised in an elliptical fashion. The incision was carried through to the underlying layer fascia. The fascia was nicked in the midline, and the incision extended bilaterally with the Martins scissors. The superior aspect of the fascial incision was grasped with a Maritza clamps, elevated, and the underlying rectus muscles dissected off sharply and bluntly. Attention was then turned to the inferior aspect of this incision which in a similar fashion was grasped with a Maritza clamps, elevated, and the underlying rectus muscles dissected off sharply and bluntly. The rectus muscles were in the midline. The peritoneum was identified, grasped between 2 hemostats, and entered sharply with the Metzenbaum scissors. This incision was extended superiorly and inferiorly with good visualization of the bladder. The bladder blade was inserted. The vesicouterine peritoneum was identified, grasped with the pickup, and entered sharply with the Metzenbaum scissors. This incision was extended bilaterally, and the bladder flap was created digitally. The bladder blade was reinserted. The lower uterine segment was incised in a transverse fashion with the scalpel. Upon entering the amniotic sac there was moderate amount of clear amniotic fluid. The infant's head was delivered with vacuum assistance. The nose and mouth were suctioned with bulb suction. The remainder of the body delivered without difficulty and wrapped in warm blankets. The cord was double clamped and cut after 1 minute. The infant was handed off to waiting RN and RT. The placenta was delivered by expression. The uterus was cleared of all clots and debris. The uterine incision was repaired with #1 chromic in a running interlocking fashion, and a second layer the same suture was used for an imbricating layer. Hemostasis was achieved. The tubes and ovaries were examined and were found to be normal. The left tube was grasped with a [place]. Using the LigaSure, the mesosalpinx was cauterized and cut all the way down to the cornua of the uterus. The tube was amputated at the cornua. This was repeated on the patient's right tube. The gutters were cleared of all clots and debris. The bladder flap was reapproximated using 2-0 Vicryl in a running fashion. The parietal peritoneum was closed using 2-0 Vicryl in a running fashion. The fascia was reapproximated using 0 Vicryl in a running fashion. The subcutaneous layer was copiously irrigated with warm normal saline. 5 simple interrupted sutures of 3-0 Vicryl were placed to reapproximate the subcutaneous layer. The skin was closed with 4-0 Monocryl in a subcuticular fashion. Steri-Strips were placed. An Aquacel dressing was placed. The uterus was expressed of a small amount of old blood. Sponge, lap, and instrument counts were correct x-2. The patient tolerated the procedure well, and was taken to PACU in stable condition. Complications: none [place] Baby 1: Infant Gender: Female Presentation: vertex Position: Left Occiput Anterior Placental Delivery Description: Expressed Cord Vessel Description: 3 Vessels, Nuchal Cord (x 2), Reduced and Clamped/Cut (after 1 minute) score (1 min): 8 score (5 min): 9 weight: 6 lb 3.5 oz Post-operative Condition: stable Disposition: PACU Aftercare: routine postop
[2023-05-05] MEDS: LABETALOL 100 MG TABLET 200 MG PO ×2 (15:03→21:07)
[2023-05-05] MEDS: KETOROLAC 30 MG/ML VIAL IV (17:42)
[2023-05-06 00:37] VITALS: TEMP 36.6
[2023-05-06] MEDS: KETOROLAC 30 MG/ML VIAL IV (00:37)
[2023-05-06] MEDS: diphenhydrAMINE 50 MG/ML VIAL 25 MG IV ×2 (00:40→06:56)
[2023-05-06 06:38] LABS: Hematocrit 27.7 % (36-46); Hemoglobin 9.4 g/dL (12.0-16.0)
--- NOTE | 2023-05-06 07:56 | PM.OBDS.1 ---
Discharge Providers Provider Date of admission: 05/05/23 05:27 Discharge Date: 05/06/23 Primary care physician: CONNIE Tomlin Consults: 05/05/23 10:02 Consult to Pump Station Operator Routine Comment: Discharge provider: Yoli Camarena MD Summary Hospital Course Date Patient Seen: 05/06/23 Time Patient Seen: 08:01 Diagnoses: 38-,3/7 weeks gestation Chronic hypertension Gestational diabetes Previous section Desired permanent sterilization Repeat low-transverse section Bilateral salpingectomy Scar revision Hospital Course: Patient is a 32-year-old 2 para 2 who presented on May 05, 2023 for a scheduled repeat section, scar revision, and bilateral salpingectomy. She underwent these procedures without complication. On the evening of surgery her Christianson catheter was removed. Her pain is well controlled. She is tolerating a diet. is going well. She is ambulating without assistance. She has voided without the catheter. She requests discharge. Peripartum Data Infant Delivery Method: Section Procedures: Spinal anesthesia Repeat low-transverse section Bilateral salpingectomy Scar revision complications: none [place] 1: Gender: Female Disposition of : home Status at Discharge Cognitive/behavioral status at discharge: oriented Functional status at discharge: independent ambulation Overall status at discharge: patient is progressing back to baseline Time Spent with Patient Time attestation: Total time spent providing and/or coordinating discharge services: Time spent: Less than 30 minutes Objective Labs 05/06/23 06:11 Labs: Laboratory Results - last 24 hr 05/06/23 06:11 Hgb 9.4 L Hct 27.7 L Exam Vital Signs (past 8 hours): - 05/06/23 00:37 Temperature 97.9 F Oxygen Delivery Method Room Air Narrative Exam Narrative: Generally: Patient lying in bed, nursing infant, no acute distress Lungs: Clear to auscultation bilaterally Cardiovascular: Regular rate and rhythm Fundus: Firm at U -1 Incision: Clean dry and intact with Aquacel dressing Extremities: Trace edema, negative Homans Discharge Plan Discharge Plan Patient Disposition: Home Provider Discharge Comment: Call with fever, chills, redness or drainage around the incision, or bleeding vaginally more than a pad in an hour Ibuprofen 600 mg every 6 hours as needed Tylenol 650 mg every 6 hours as needed Stool softeners until bowel returns to normal Push oral fluids Discharge orders & Medications Prescriptions: New oxycodone 5 mg tablet 5 mg PO Q4H PRN (Reason: pain) Qty: 14 0RF Continued labetalol 200 mg tablet 200 mg PO TID Qty: 270 1RF prenat.vits,andreas,[id number] Tablet 1 tab PO DAILY nifedipine 30 mg tablet extended release See Rx Instructions .ROUTE .COMPLEX Qty: 90 1RF Dose Instruction: TAKE 1 TABLET BY MOUTH DAILY Rx Instructions: TAKE 1 TABLET BY MOUTH DAILY calcium 1 tab PO DAILY Discontinued magnesium tablet 250 mg PO DAILY No Action (DME) Double Electric Breast Pump See Rx Instructions .Route .MEDSUPPLY Qty: 1 0RF Rx Instructions: Pump and supplies Follow up/Referrals: Yoli Camarena MD [Physician] - 1 Week (Please schedule 1 week Aquacel removal and 6 week visit) Diet/Activity/Treatments Diet: Regular Activity: No heavy lifting Nothing in the vagina for 6 weeks Skin/Wound/Dressing Care Report to your healthcare provider any signs of infection, such as:: chills, fever, increased pain, unusual drainage and unusual redness Visit Report/Discharge Packet Instructions: DI for , DI for Prescription Opioid Use Stand Alone Forms: Patient Portal/API, Stroke Signs & Symptoms Discharge Data Primary Care Provider: Greg Sethi
[2023-05-06 08:29] VITALS: BP 118/72; PULSE 77
[2023-05-06] MEDS: LABETALOL 100 MG TABLET 200 MG PO ×2 (08:29→15:40)
[2023-05-06] MEDS: ACETAMINOPHEN 325 MG TABLET 650 MG PO (08:32)
[2023-05-06] MEDS: NIFEdipine 30 MG TAB ER PO (08:33)
[2023-05-06] MEDS: PRENATAL VIT,CALC/IRON/FOLIC 1 TABLET 1 TAB PO (08:33)
[2023-05-06] MEDS: DOCUSATE 100 MG CAPSULE PO (08:33)
[2023-05-06] MEDS: IBUPROFEN 600 MG TABLET PO (12:05)
[2023-05-06 13:17] VITALS: BP 118/72; PULSE 77; RESP 20; TEMP 36.6
[2023-05-06 15:40] VITALS: BP 143/87; PULSE 70
== END 2023-05-06 13:45 | disposition home or self-care (01) | DRG 785 ==
PROVIDERS: Admitting Provider Obstetrics & Gynecology; PCP Registered Nurse Diabetes Educator; Referring Provider Obstetrics & Gynecology; Visit Provider Obstetrics & Gynecology
PROC: 10D00Z1 Extraction of Products of Conception, Low, Open Approach (ICD-10-PCS; CPT 59514; principal; 2023-05-05 07:45)
DX: O34.211 Maternal care for low transverse scar from previous cesarean delivery (principal); Z3A.38 38 weeks gestation of pregnancy; Z37.0 Single live birth; O24.420 Gestational diabetes mellitus in childbirth, diet controlled; O13.4 Gestational [pregnancy-induced] hypertension without significant proteinuria, complicating childbirth; Z30.2 Encounter for sterilization; O99.892 Other specified diseases and conditions complicating childbirth; L91.0 Hypertrophic scar
CPT/HCPCS: 36415; 58611; 59050; 59510; 59514; 85014; 85018; 85025; 86850; 86900; 86901; J0690; J1200; J1885; J2274; J2405; J2590; J3010

== ENCOUNTER → 2023-07-14 10:23 | Outpatient (CLI) | payer OTHER, SELFPAY ==
[2023-07-14 12:38] LABS: Glucose 1 Hour 185 mg/dL (70-170)
[2023-07-14 14:38] LABS: Glucose Tol Interpretation INTERPRETATION
[2023-07-14 14:44] LABS: Glucose 2 Hour 173 mg/dL (70-140)
[2023-07-15 09:56] LABS: Glucose Fasting 84 mg/dL (70-100)
== END ==
PROVIDERS: PCP Registered Nurse Diabetes Educator; Referring Provider Obstetrics & Gynecology; Visit Provider Obstetrics & Gynecology
DX: O24.419 Gestational diabetes mellitus in pregnancy, unspecified control (principal); Z3A.00 Weeks of gestation of pregnancy not specified
CPT/HCPCS: 36415; 82951; 82952

== ENCOUNTER → 2023-08-12 10:11 | Outpatient (CLI) | payer OTHER, SELFPAY ==
[2023-08-12 11:04] LABS: Hematocrit 38.7 % (36-46); Hemoglobin 12.7 g/dL (12.0-16.0); Mean Corpuscular HGB Conc 32.8 % (30-36); Mean Corpuscular Hemoglobin 27.1 PG (26-34); Mean Corpuscular Volume 82.6 fL (80-100); Platelet Count 313 X10^3/uL (150-400); Red Blood Cell Count 4.68 X10^6/uL (4.0-5.2); Red Cell Distribution Width 13.4 % (11.6-14.8); White Blood Cell Count 7.6 X10^3/uL (4.5-11.0)
== END ==
PROVIDERS: PCP Registered Nurse Diabetes Educator; Referring Provider Registered Nurse Diabetes Educator; Visit Provider Registered Nurse Diabetes Educator
DX: O24.419 Gestational diabetes mellitus in pregnancy, unspecified control (principal); O99.019 Anemia complicating pregnancy, unspecified trimester; D50.9 Iron deficiency anemia, unspecified
CPT/HCPCS: 36415; 83036; 85027

== ENCOUNTER 2023-08-25 06:48 | Day surgery (SDC) | payer OTHER, SELFPAY ==
[2023-08-20 11:54] VITALS: BMI 29.7
[2023-08-25] VITALS (9 sets, daily range): BP systolic 102–119; BP diastolic 56–80; PULSE 69–90; RESP 14–18; TEMP 36.1–36.2; O2SAT 92–99; BMI 29.3
--- NOTE | 2023-08-25 | PATH_ITS ---
[facility] Accession Number: [id number] No. of containers..01 Tissue . 01 Material submitted: . endometrium - ENDOMETRIAL CURRETTINGS . 01 Diagnosis: Endometrial Curettings: Portions of proliferative endometrium with patchy regions of stromal breakdown and hyalinized stromal change, nonspecific; negative for glandular hyperplasia, cytologic atypia, or malignancy. No products of conception identified. MRV 09/04/2023 1648 Local . 01 Electronically signed: . Susana Rg MD, Pathologist NPI- [id number] . 01 Gross description: . ENDOMETRIAL CURRETTINGS: Received in formalin are minute fragments of mucoid and hemorrhagic material measuring 2.5 x 1.0 x 0.3 cm in aggregate. Submitted in toto in 1 cassette. /AAY 08/26/2023 0555 Local . 01 Pathologist provided ICD-10: N93.9, O72.1 . 01 CPT . 656395 Specimen Comment: A courtesy copy of this report has been sent to [phone] Performed at: 01 [facility] [address] [place] [address], [place], [place] [id number] MD Miguel Baca MD Phone: [phone]
[2023-08-25] MEDS: LACTATED RINGERS 1,000 ML 42 ML IV (07:04)
[2023-08-25] MEDS: ACETAMINOPHEN 325 MG TABLET 975 MG PO (07:15)
--- NOTE | 2023-08-25 07:57 | P.HPOB_ITS ---
History of Present Illness History of Present Illness Reason for admission: vaginal bleeding (Persistent since delivery) Narrative: Lela Monet is a 32 year old female 2 para 2 with persistent vaginal bleeding since delivery by section 3 months ago. [facility] Medical History Mass of breast, left Fibroadenoma of left breast Immunization due Anxiety Chicken pox (~1995) Contraceptive use Irregular menstrual cycle Surgical History History of (05/05/23) [place] teeth removed (~2013) History of section (~07/02/19) Family History Mother Hypertension Hyperlipidemia Father Hypertension Hyperlipidemia Grandmother Hypertension Hyperlipidemia Grandfather Hypertension Hyperlipidemia Family/Other Diabetes mellitus Hypertension Social History marital status: household members: spouse and children lives independently: Yes caregiver/support person: Yes housing: house pets and animals: No education level: college (associate's degree) 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[employer]) current occupational exposures/hazards: Yes (always wears gloves w/ chemicals and hazardous meds, mask @ work) special niall needs: No travel history: over 6 months ago seatbelt use: always water heater temp set < 120 deg: Yes working smoke detector in home: Yes fire extinguisher in home: Yes carbon monox detector in home: Yes firearms in home: No do you feel safe at home: Yes Smoking Status: Never smoker second hand exposure: No alcohol intake: former substance use type: does not use during the past year weight has: remained stable well-balanced diet: about half the time daily servings fruits/ve-4 caffeine: No Type(s) of exercise: none Meds Home Medications and Allergies Home Medications Medication Instructions Recorded Confirmed Type prenat.vits,andreas,kaa-yhir-uwcao 1 tab PO DAILY 09/18/22 08/25/23 History Double Electric Breast Pump #1 ea 01/29/23 08/19/23 Rx calcium 1 tab PO DAILY 05/05/23 08/25/23 History labetalol 200 mg tablet See Rx Instructions PO .COMPLEX 08/19/23 08/25/23 Rx #360 tabs nifedipine 30 mg tablet,extended 30 mg PO BID #180 tabs 08/19/23 08/25/23 Rx release Allergies Allergy/AdvReac Type Severity Reaction Status Date / Time No Known Drug Allergies Allergy Verified 08/25/23 07:26 Exam Vital Signs (past 8 hours): - 08/25/23 07:17 Temperature 97.2 F L Pulse Rate 74 Respiratory Rate 16 Blood Pressure 119/80 Pulse Oximetry 99 Oxygen Delivery Method Room Air Oxygen Delivery Method Room Air Narrative Exam Narrative: HEENT: No thyromegaly, no anterior cervical or supraclavicular lymphadenopathy. Lungs:Clear to auscultation bilaterally, no wheezes. Cardiovascular: Regular rate and rhythm, no murmurs, rubs, or gallops. Abdomen: Well-healed Pfannenstiel scars. No hepatosplenomegaly. No masses palpable. External genitalia: Normal Vagina: Normal Cervix: Normal Bimanual exam: 7 Week size anteverted uterus. Mobile. Extremities: No edema Assessment & Plan Assessment & Plan narrative: Assessment: 32-year-old 2 para 2 with persistent vaginal bleeding since a section 3 months ago Plan: D&C hysteroscopy The risks, benefits, and alternatives to the procedure were explained to the patient. The risks including bleeding, infection, and uterine perforation. She understands these risks and agrees to proceed. A full par Q was held and consent form was signed. Time Spent With Patient Time with patient: less than 30 minutes
--- NOTE | 2023-08-25 07:59 | PM.PREOP ---
Pre-operative Note Interval Note History & Physical reviewed/Exam performed by Physician: Yes Changes to H&P: No H&P completed within 30 days and has changed as indicated here:: 08/25/23
--- NOTE | 2023-08-25 08:35 | SUR.OPER ---
Lithotomy on padded OR bed, head on pillow, arms secured on padded arm boards at <90 degrees abduction. Legs secured in padded yellow fins stirrups.
--- NOTE | 2023-08-25 09:11 | P.OP_ITS ---
Operative Date/Time/Diagnoses Date of procedure: 08/25/23 Time of procedure: 09:11 Pre-op diagnosis: Persistent vaginal bleeding after delivery Post-op diagnosis: same Procedure & Clinicians Procedure: Procedures Operation Date: 08/25/23 07:45 Actual Procedure Side Surgeon p suction Dilation and Curettage Not Applicable Yoli Camarena MD Indications: 32 year old with persistent vaginal bleeding after delivery Surgeon: Yoli Camarena Anesthesia Type: General (LMA) Operative Notes Findings: 7 week size anteverted uterus Both Fallopian tube ostia observed No retained placenta Closure Type: not applicable Specimen(s): endometrial curettings Estimated blood loss (mL): 5 Blood products transfused: none Procedure in detail: After informed consent was obtained, the patient was taken to the operating room where she was placed in the dorsal supine position. After adequate LMA general anesthesia was achieved, she was placed in the dorsal lithotomy position, and prepped and draped in the usual sterile fashion. A time-out was performed. A bivalve speculum was placed into the vagina and the anterior lip of the cervix was grasped with a single-tooth tenaculum. The cervical os was sequentially dilated to the # 9 Hegar dilator. The hysteroscope passed easily into the endometrial cavity. Initial inspection with the hysteroscope revealed both fallopian tube ostia. No retained placenta or polyps were observed. The hyst eroscope was removed. Gentle sharp curettage was performed, yielding a moderate amount of endometrial curettings. The instruments were removed from the uterus. The single-tooth tenaculum was removed from the anterior lip of the cervix. The bivalve speculum was removed from the vagina. Sponge, lap, and instrument counts were correct x2. The patient tolerated the procedure well, and was taken to PACU in stable condition. Complications: none Post-operative Condition: stable Disposition: PACU Plan for aftercare: Home after recovery
[2023-08-25] MEDS: KETOROLAC 30 MG/ML VIAL IV (09:40)
== END 2023-08-25 10:10 | disposition home or self-care (01) ==
PROVIDERS: PCP Registered Nurse Diabetes Educator; Referring Provider Obstetrics & Gynecology; Visit Provider Obstetrics & Gynecology
PROC: (CPT 58120; principal; 2023-08-25 07:45)
DX: O72.1 Other immediate postpartum hemorrhage (principal)
CPT/HCPCS: 58558; 81025; J1100; J1885; J2405; J2704; J3010

== ENCOUNTER → 2023-11-19 06:50 | Outpatient (CLI) | payer OTHER, SELFPAY ==
--- NOTE | 2023-11-19 06:51 | DI.US.S_ITS ---
PROCEDURE: US PELVIC COMPLETE INDICATIONS: BLEEDING BETWEEN MENSES. NO CONTROL. HISTORY OF PCOS. TECHNIQUE: Real-time scanning was performed of the pelvic organs, with image documentation. Additional endovaginal scanning was necessary due to incomplete visualization of the adnexal and endometrial structures by transabdominal scanning. COMPARISON: [facility], US, US PELVIC COMPLETE, 12/08/2020, 16:19. FINDINGS: Uterus: Uterus is anteverted and normal in size at 6.7 x 5.7 x 3.8 cm. The myometrium is homogeneous. The endometrium measures 4.4 mm combined thickness. No uterine fibroids. Ovaries: The right ovary measures 4.2 x 3.0 x 1.6 cm, with a calculated ovarian volume of 10.2 cc. The left ovary measures 4.4 x 2.0 x 2.2 cm, with a calculated ovarian volume of 9.8 cc. Greater than 12 follicles can be seen in each ovary. No adnexal masses are seen. Other: No pathologic free abdominal or pelvic fluid. IMPRESSION: 1. Endometrium is normal in thickness. 2. Greater than 12 sub-5 mm follicular cysts bilaterally which can be associated with polycystic ovarian morphology. We strive to produce accurate, complete, and clear reports of imaging services. To assist us in improving patient care, this report was composed using standard report templates and voice recognition software. Therefore, it may contain abnormal punctuation, insertions and/or omissions. Occasional wrong-word or sound-alike substitutions may occur. Though we review the report and make efforts to correct it, we do recommend that the report be read carefully in proper context to recognize any text inaccuracies. Dictated by: Aric Stewart M.D. on 11/19/2023 at 9:11 Approved by: Aric Stewart M.D. on 11/19/2023 at 9:13
== END ==
LOC: US 06:50
PROVIDERS: PCP Registered Nurse Diabetes Educator; Referring Provider Obstetrics & Gynecology; Visit Provider Obstetrics & Gynecology
DX: N92.6 Irregular menstruation, unspecified (principal)
CPT/HCPCS: 76830; 76856

== ENCOUNTER 2024-06-27 20:22 | Emergency (ER) | payer OTHER, SELFPAY ==
[2024-06-27] VITALS (9 sets, daily range): BP systolic 147–176; BP diastolic 90–109; PULSE 64–87; RESP 16–18; TEMP 36.8–36.9; O2SAT 96–100; BMI 29.2
--- NOTE | 2024-06-27 21:14 | PC.NURSE ---
patient was seen at [facility] last night. She was given a abd CT and found to have hepatic steatosis. she was given IV fluids, pain meds and told to return to the ED if the ABD pain got worse or comes back. Today her pain is back and is not resolved with home OTC remedies.
[2024-06-27] MEDS: KETOROLAC 30 MG/ML VIAL 15 MG IV (21:19)
[2024-06-27] MEDS: ACETAMINOPHEN IV 1,000 MG/100 ML VIAL 400 MG IV (21:19)
--- NOTE | 2024-06-27 21:29 | ED.HA ---
HPI - Headache General Chief Complaint: Headache Stated Complaint: headache, tylenol not working t-1 Time Seen by Provider: 06/27/24 21:09 Mode of arrival: Ambulatory History of Present Illness HPI Narrative: Patient is a 33-year-old female. Yesterday seen at an outside facility for abdominal discomfort and a headache. Denies any fevers. Stated that the abdominal discomfort from yesterday has now gone. She stated that she had a CT scan performed at the outside facility without a specific diagnosis. She stated that her headache did improve yesterday after receiving IV medications. She states this morning she started to have the headache and again. Describes it as starting in the back of the right side of the neck and then moving up towards the front. No vision changes. No balance issues. No fevers. She states that when she takes Tylenol at home the symptoms do improve but then it starts to return after the medication wears off. Related Data Home Medications Medication Instructions Recorded Confirmed prenat.vits,andreas,[id number] 1 tab PO DAILY 09/18/22 04/19/24 calcium 1 tab PO DAILY 05/05/23 04/19/24 Previous Rx's Medication Instructions Recorded Double Electric Breast Pump #1 ea 01/29/23 lisinopril 10 1 tab PO DAILY #90 tabs 06/23/24 mg-hydrochlorothiazide 12.5 mg tablet metoprolol succinate 100 mg 100 mg PO DAILY #90 tabs 06/23/24 tablet,extended release 24 hr Allergies Allergy/AdvReac Type Severity Reaction Status Date / Time No Known Drug Allergies Allergy Verified 04/19/24 10:53 Review of Systems Review of Systems Narrative: See HPI Patient History Medical History Mass of breast, left Fibroadenoma of left breast Immunization due Anxiety Chicken pox (~1995) Contraceptive use Irregular menstrual cycle Surgical History History of (05/05/23) [place] teeth removed (~2013) History of section (~07/02/19) Family History Mother Hypertension Hyperlipidemia Father Hypertension Hyperlipidemia Grandmother Hypertension Hyperlipidemia Grandfather Hypertension Hyperlipidemia Family/Other Diabetes mellitus Hypertension Social History marital status: household members: spouse and children lives independently: Yes caregiver/support person: Yes housing: house pets and animals: No education level: college (associate's degree) 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[employer]) current occupational exposures/hazards: Yes (always wears gloves w/ chemicals and hazardous meds, mask @ work) special niall needs: No travel history: over 6 months ago seatbelt use: always water heater temp set < 120 deg: Yes working smoke detector in home: Yes fire extinguisher in home: Yes carbon monox detector in home: Yes firearms in home: No do you feel safe at home: Yes Smoking Status: Never smoker second hand exposure: No alcohol intake: former substance use type: does not use during the past year weight has: remained stable well-balanced diet: about half the time daily servings fruits/ve-4 caffeine: No Type(s) of exercise: none Smoking Status: Never smoker alcohol intake frequency: holidays/special occasions only Substance Use Type: does not use Exam Initial Vital Signs Initial Vital Signs: Vital Signs Temperature 98.2 F 06/27/24 20:25 Pulse Rate 83 06/27/24 20:25 Respiratory Rate 16 06/27/24 20:25 Blood Pressure 168/99 H 06/27/24 20:25 Pulse Oximetry 100 06/27/24 20:25 Oxygen Delivery Method Room Air 06/27/24 20:25 Const General: cooperative, comfortable and No ill appearing HENMT Head: normal to inspection and normocephalic Face and sinus: normal facial exam Resp Effort & Inspection: normal respiratory effort Auscultation: clear to auscultation bilaterally Cardio Rate: regular rate Rhythm: regular rhythm GI Inspection: normal to inspection and non-distended Palpation: soft and No tender Skin General: no rashes or lesions noted Neuro General: patient alert, patient awake and moves all extremities Extrem General: normal to inspection and capillary refill normal Course Orders Ordered: Discontinued Medications Cyclobenzaprine HCl (Cyclobenzaprine 10 Mg Prepack) 1 bottle MISC DIRECTED ONE Stop: 06/27/24 23:21 Last Admin: 06/27/24 23:26 Dose: 1 bottle Documented By: Acetaminophen (Ofirmev) 1,000 mg in 100 mls @ 400 mls/hr IV NOW ONE Stop: 06/27/24 21:26 Last Infusion: 06/27/24 21:44 Dose: Infused Documented By: Admin: 06/27/24 21:19 Dose: 400 mls/hr Documented By: MIKEL Ketorolac Tromethamine (Ketorolac 30 Mg/Ml Vial) 15 mg IV NOW ONE Stop: 06/27/24 21:13 Last Admin: 06/27/24 21:19 Dose: 15 mg Documented By: MIKEL Vital Signs Vital signs: Vital Signs - 8 hr 06/27/24 20:25 06/27/24 20:51 06/27/24 20:51 Temperature 98.2 F Pulse Rate 83 80 Respiratory Rate 16 Blood Pressure 168/99 H 176/109 H Pulse Oximetry 100 98 Oxygen Delivery Method Room Air 06/27/24 21:00 06/27/24 21:00 06/27/24 21:30 Temperature Pulse Rate 75 Respiratory Rate Blood Pressure 147/92 H 164/100 H Pulse Oximetry 97 Oxygen Delivery Method 06/27/24 21:30 06/27/24 22:00 06/27/24 22:00 Temperature Pulse Rate 70 69 Respiratory Rate Blood Pressure 151/90 H Pulse Oximetry 96 97 Oxygen Delivery Method 06/27/24 22:30 06/27/24 22:30 06/27/24 23:00 Temperature Pulse Rate 64 Respiratory Rate Blood Pressure 154/102 H 160/107 H Pulse Oximetry 96 Oxygen Delivery Method 06/27/24 23:00 06/27/24 23:11 06/27/24 23:11 Temperature Pulse Rate 66 75 Respiratory Rate Blood Pressure 150/95 H Pulse Oximetry 97 97 Oxygen Delivery Method 06/27/24 23:33 Temperature 98.4 F Pulse Rate 87 Respiratory Rate 18 Blood Pressure 150/95 H Pulse Oximetry 99 Oxygen Delivery Method Room Air MDM - Headache MDM Narrative Medical decision making narrative: Improvement of symptoms after medications here in the ER. Low suspicion for meningitis or acute intracranial hemorrhage. No fevers. No abdominal pain. Her pain seems to originate in the back of her neck and move forward. Some question is whether or not this is a tension headache. Plan will be to send her home with muscle relaxers and also instructions to continue with the anti-inflammatories. Advised that she contact your primary provider for follow-up. She was given return precautions. Discharge Plan Departure Patient Disposition: Home Clinical Impression: Headache, Hypertension Instructions: DI for Headache Activity Restrictions/Additional Instructions: continue to take your blood pressure medications as directed and take your blood pressure at and record the values so that you can talk with your primary doctor about potentially any changes to medications. You can continue to take Tylenol and or ibuprofen for your headache. You can use the muscle relaxers as needed as well. Return to the emergency department for new symptoms. Prescriptions: No Action metoprolol succinate 100 mg tablet extended release 24 hr 100 mg PO DAILY Qty: 90 0RF lisinopril-hydrochlorothiazide 10-12.5 mg tablet 1 tab PO DAILY Qty: 90 0RF prenat.vits,andreas,[id number] Tablet 1 tab PO DAILY (DME) Double Electric Breast Pump See Rx Instructions .Route .MEDSUPPLY Qty: 1 0RF Rx Instructions: Pump and supplies calcium 1 tab PO DAILY Referrals: Greg Sethi ARNP [Primary Care Provider] - Stand Alone Forms: Patient Portal/API
[2024-06-27] MEDS: CYCLOBENZAPRINE 10 MG PREPACK 1 BOTTLE MISC (23:26)
== END 2024-06-27 23:34 | disposition home or self-care (01) ==
PROVIDERS: Emergency Provider Emergency Medicine; PCP Registered Nurse Diabetes Educator
DX: I10 Essential (primary) hypertension (principal); R51.9 Headache, unspecified
CPT/HCPCS: 36415; 96365; 96375; 99284; J0136; J1885

== ENCOUNTER → 2024-11-16 10:39 | Outpatient (CLI) | payer OTHER, SELFPAY ==
[2024-11-16 12:21] LABS: Hematocrit 37.2 % (36-46); Hemoglobin 12.5 g/dL (12.0-16.0); Mean Corpuscular HGB Conc 33.6 % (30-36); Mean Corpuscular Hemoglobin 28.2 PG (26-34); Mean Corpuscular Volume 83.9 fL (80-100); Platelet Count 356 X10^3/uL (150-400); Red Blood Cell Count 4.44 X10^6/uL (4.0-5.2); Red Cell Distribution Width 12.5 % (11.6-14.8); White Blood Cell Count 7.4 X10^3/uL (4.5-11.0)
[2024-11-16 12:29] LABS: Hemoglobin A1C% w Est Avg Glu 5.1 % (4.0-6.0)
[2024-11-16 12:57] LABS: Alanine Aminotransferase 14 IU/L (<35); Albumin 4.8 g/dL (3.5-5.0); Albumin Globulin Ratio 1.8 (1.0-2.8); Alkaline Phosphatase 52 U/L (38-126); Aspartate Aminotransferase 23 IU/L (14-36); BUN Creatinine Ratio 27.1 (6-22); Bilirubin Total 0.5 mg/dL (0.2-1.3); Blood Urea Nitrogen 16 mg/dL (7-17); Calcium 9.5 mg/dL (8.4-10.2); Carbon Dioxide 23 mmol/L (22-32); Chloride 103 mmol/L (98-107); Cholesterol 215 mg/dL (140-199); Estimated Glomerular Filt Rate > 60 mL/min (>60); Globulin 2.7 g/dL (1.7-4.1); Glucose 88 mg/dL (70-100); HDL Cholesterol 47 mg/dL (40-60); HEMOLYSIS < 15 (0-50); LDL Cholesterol Calculated 130 mg/dL (<100); Sodium 138 mmol/L (137-145); Total Protein 7.5 g/dL (6.3-8.2); Triglycerides 188 mg/dL (35-150)
[2024-11-16 13:21] LABS: TSH w/ Reflex to FT4 0.77 uIU/mL (0.47-4.68)
== END ==
PROVIDERS: PCP Registered Nurse Diabetes Educator; Referring Provider Registered Nurse Diabetes Educator; Visit Provider Registered Nurse Diabetes Educator
DX: O24.419 Gestational diabetes mellitus in pregnancy, unspecified control (principal); I10 Essential (primary) hypertension; E78.5 Hyperlipidemia, unspecified
CPT/HCPCS: 36415; 80053; 80061; 83036; 84443; 85027

== ENCOUNTER 2025-05-01 06:34 | Emergency (ER) | payer OTHER, SELFPAY ==
[2025-05-01 06:40] VITALS: BP 145/75; PULSE 88; RESP 20; TEMP 36.2; O2SAT 98; BMI 30.2
[2025-05-01 07:24] LABS: Add Manual Diff / Slide Review NO; Hematocrit 39.5 % (36-46); Hemoglobin 13.3 g/dL (12.0-16.0); Lymphocytes Absolute Auto 2500 /uL (1100-4500); Mean Corpuscular HGB Conc 33.6 % (30-36); Mean Corpuscular Hemoglobin 28.0 PG (26-34); Mean Corpuscular Volume 83.2 fL (80-100); Platelet Count 288 X10^3/uL (150-400)
[2025-05-01 07:35] LABS: INR 0.9 (0.9-1.3); Prothrombin Time 10.6 SECONDS (9.4-12.5)
[2025-05-01 07:39] LABS: Alanine Aminotransferase 22 IU/L (<35); Albumin 5.0 g/dL (3.5-5.0); Albumin Globulin Ratio 1.6 (1.0-2.8); Alkaline Phosphatase 63 U/L (38-126); Blood Urea Nitrogen 13 mg/dL (7-17); Calcium 9.4 mg/dL (8.4-10.2); Carbon Dioxide 23 mmol/L (22-32); Chloride 103 mmol/L (98-107); Estimated Glomerular Filt Rate > 60 mL/min (>60); Globulin 3.1 g/dL (1.7-4.1); Glucose 114 mg/dL (70-99); HEMOLYSIS < 15 (0-50); Potassium 3.6 mmol/L (3.4-5.1); Sodium 138 mmol/L (137-145); Total Protein 8.1 g/dL (6.3-8.2)
--- NOTE | 2025-05-01 08:09 | ED.GIBLEED ---
HPI - GI Bleed General Chief complaint: GI Bleed Stated complaint: Rectal bleeding started last night Time Seen by Provider: 05/01/25 06:48 Source: patient Mode of arrival: Ambulatory History of Present Illness HPI Narrative: 34-year-old female with a history of hemorrhoids presents with bright red bleeding in her rectum with right red blood seen on the toilet paper that started overnight. Patient admits to sitting more frequently recently. She does not complain of any other GI or symptoms. No abdominal pain or other symptoms. Related Data Previous Rx's ?Medication ?Instructions ?Recorded lisinopril 10 mg tablet 10 mg PO DAILY #90 tabs 11/19/24 lisinopril 20 1 tab PO DAILY #90 tabs 11/19/24 mg-hydrochlorothiazide 25 mg tablet metoprolol succinate 100 mg 100 mg PO DAILY #90 tabs 11/19/24 tablet,extended release 24 hr phenylephrine-shark liver 1 applic MT Q8H #57 grams 05/01/25 oil-mineral oil-petrolatum rectal ointment (Hemorrhoid ointment) Allergies Allergy/AdvReac Type Severity Reaction Status Date / Time No Known Drug Allergies Allergy Verified 05/01/25 06:41 Review of Systems Review of Systems ROS Unobtainable: All systems reviewed & are unremarkable except as noted in HPI and below Patient History Medical History Mass of breast, left Fibroadenoma of left breast Immunization due Anxiety Chicken pox (~1995) Contraceptive use Irregular menstrual cycle Surgical History History of (05/05/23) [place] teeth removed (~2013) History of section (~07/02/19) Family History Mother Hypertension Hyperlipidemia Father Hypertension Hyperlipidemia Grandmother Hypertension Hyperlipidemia Grandfather Hypertension Hyperlipidemia Family/Other Diabetes mellitus Hypertension Social History marital status: household members: spouse and children lives independently: Yes caregiver/support person: Yes housing: house pets and animals: No education level: college (associate's degree) 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[employer]) current occupational exposures/hazards: Yes (always wears gloves w/ chemicals and hazardous meds, mask @ work) special niall needs: No travel history: over 6 months ago seatbelt use: always water heater temp set < 120 deg: Yes working smoke detector in home: Yes fire extinguisher in home: Yes carbon monox detector in home: Yes firearms in home: No do you feel safe at home: Yes Smoking Status: Never smoker second hand exposure: No alcohol intake: former substance use type: does not use during the past year weight has: remained stable well-balanced diet: about half the time daily servings fruits/ve-4 caffeine: No Type(s) of exercise: none Smoking Status: Never smoker alcohol intake frequency: holidays/special occasions only Exam Narrative Exam Narrative: General: Patient appears to be in no acute distress, acting appropriately Head: normocephalic, atraumatic, HEENT: Pupils equal round reactive, eyes tracking well, neck supple, no JVD Heart: regular rate and rhythm, no murmurs, rubs, or gallops heard Lungs: clear to auscultation, no adventitious sounds Abdomen: soft , nontender, nondistended, positive bowel sounds Neurological: no focal neurological signs, moving all extremities well, alert and oriented x3, Psych: good judgment ,good insight, mood is normal. rectal exam: no fissure, no fistula, 3 hemorrhoids seen in the 12, 6, and 9 o clock region, no thrombosis seen. Seen with a tobacco cloth reclaimer. Initial Vital Signs Initial Vital Signs: Vital Signs Temperature 97.1 F L 05/01/25 06:40 Pulse Rate 88 05/01/25 06:40 Respiratory Rate 20 05/01/25 06:40 Blood Pressure 145/75 H 05/01/25 06:40 Pulse Oximetry 98 05/01/25 06:40 Oxygen Delivery Method Room Air 05/01/25 06:40 Course Course Course Narrative: Patient has obvious hemorrhoids on physical exam. Advised Sitz baths and hemorrhoid cream for now. Advised to try to stand up and not sit down so much in the near future. Orders Ordered: ED Orders 05/01/25 07:05 CBC Auto Diff [Complete Blood Count AUTO DIFF] Stat CMP [Comprehensive Metabolic Panel] Stat Prothrombin Time INR Stat Vital Signs Vital signs: Vital Signs - 8 hr 05/01/25 06:40 Temperature 97.1 F L Pulse Rate 88 Respiratory Rate 20 Blood Pressure 145/75 H Pulse Oximetry 98 Oxygen Delivery Method Room Air MDM - GI Bleed Differential Diagnosis Differential diagnosis: Likely hemorrhoids, infectious diarrhea, gastritis, Lower gastrointestinal hemorrhage and anal fissure Lab Data 05/01/25 07:05 05/01/25 07:05 Labs: Lab Results 05/01/25 Range/Units 07:05 WBC 7.3 (4.5-11.0) X10^3/uL RBC 4.75 (4.0-5.2) X10^6/uL Hgb 13.3 (12.0-16.0) g/dL Hct 39.5 (36-46) % MCV 83.2 (80-100) fL MCH 28.0 (26-34) PG MCHC 33.6 (30-36) % RDW 13.1 (11.6-14.8) % Plt Count 288 (150-400) X10^3/uL Neut % (Auto) 52.0 (50-75) % Lymph % (Auto) 34.1 (25-40) % [place] % (Auto) 7.2 (3-14) % Eos % (Auto) 5.6 H (2-4) % Baso % (Auto) 1.1 (0-2) % Neut # (Auto) 3800 (3797-5740) /uL Lymph # (Auto) 2500 (7372-6791) /uL [place] # (Auto) 500 (0-900) /uL Eos # (Auto) 400 (0-450) /uL Baso # (Auto) 100 (0-100) /uL PT 10.6 (9.4-12.5) SECONDS INR 0.9 (0.9-1.3) Sodium 138 (137-145) mmol/L Potassium 3.6 (3.4-5.1) mmol/L Chloride 103 (98-107) mmol/L Carbon Dioxide 23 (22-32) mmol/L BUN 13 (7-17) mg/dL Creatinine 0.59 (0.52-1.04) mg/dL Estimated GFR > 60 (>60) mL/min BUN/Creatinine Ratio 22.0 (6-22) Glucose 114 H (70-99) mg/dL Calcium 9.4 (8.4-10.2) mg/dL Total Bilirubin 0.6 (0.2-1.3) mg/dL AST 29 (14-36) IU/L ALT 22 (<35) IU/L Alkaline Phosphatase 63 (38-126) U/L Total Protein 8.1 (6.3-8.2) g/dL Albumin 5.0 (3.5-5.0) g/dL Globulin 3.1 (1.7-4.1) g/dL Albumin/Globulin Ratio 1.6 (1.0-2.8) MDM Narrative Medical decision making narrative: 34-year-old female with obvious hemorrhoids. Advised to some Sitz baths and will use some hemorrhoid ointment as needed. Patient advised to follow up with GI for continual bleed or dark looking blood. Advised to try not to sit so much as well. Discharge Plan Departure Patient Disposition: Home Clinical Impression: Hemorrhoid Qualifiers: Hemorrhoid type: first degree Qualified Code(s): K64.0 - First degree hemorrhoids Instructions: DI for Hemorrhoids Activity Restrictions/Additional Instructions: do warm baths at least 10 min a day for 3-4 x a day, use ointment as prescribed. If continued to bleed follow up with GI for further intervention such as a colonoscopy. Prescriptions: New Hemorrhoid Ointment 1 applic MT Q8H Qty: 57 0RF No Action lisinopril 10 mg tablet 10 mg PO DAILY Qty: 90 3RF Rx Instructions: Take 1 tab daily along with combination lisinopril/HCTZ 20mg/25mg (for total daily lisinopril dose of 30mg) lisinopril-hydrochlorothiazide 20-25 mg tablet 1 tab PO DAILY Qty: 90 3RF metoprolol succinate 100 mg tablet extended release 24 hr 100 mg PO DAILY Qty: 90 3RF Referrals: Miscellaneous,Doctor, MD [Primary Care Provider, Medical] Stand Alone Forms: Patient Portal/API
[2025-05-01 09:08] VITALS: BP 131/66; PULSE 95; RESP 18; O2SAT 95
== END 2025-05-01 09:14 | disposition home or self-care (01) ==
PROVIDERS: Emergency Medicine; Emergency Provider Family Medicine
DX: K64.0 First degree hemorrhoids (principal)
CPT/HCPCS: 36415; 80053; 85025; 85610; 99283